=== PATIENT | female | born 1980 | race Two or more races ===

== ENCOUNTER 2023-09-14 22:07 | Emergency (ER) | payer BC, SELFPAY ==
[2023-09-14 22:11] VITALS: BP 134/94
[2023-09-14 22:39] LABS: % Basophils 0.5 % (0-2); % Eosinophils 0.8 % (0-6); % Immature Granulocytes 0.2 % (0-0.5); % Lymphocytes 22.7 % (20.5-51.1); % Monocytes 7.4 % (1.7-9.3); % Neutrophils 68.4 % (42.2-75.2); Absolute Eosinophils 0.1 10^3/uL (0-0.7); Absolute Monocytes 0.6 10^3/uL (0.1-0.6); Absolute Neutrophils 5.9 10^3/uL (1.4-6.5); Hematocrit 34.1 % (37.0-47.0); Hemoglobin 10.5 g/dL (12.0-16.0); Mean Corp Hgb Conc. 30.8 g/dL (33.0-37.0); Mean Corpuscular Hgb 20.1 pg (27.0-31.0); Mean Corpuscular Volume 65.2 fL (81.0-99.0); Nucleated Red Blood Cells % 0 %; Platelet Count 229 10^3/uL (130-400); Red Blood Cell Count 5.23 10^6/uL (4.20-5.40); Red Cell Dist. Width 19.4 % (11.5-14.5); White Blood Cell Count 8.6 10^3/uL (4.8-10.8)
[2023-09-14 22:50] LABS: HCG, Serum Qualitative Screen Negative
[2023-09-14 22:52] LABS: ALT (SGPT) 15 U/L (0-35); AST (SGOT) 28 U/L (14-36); Albumin 4.7 g/dl (3.5-5.0); Alkaline Phosphatase 75 U/L (38-126); Blood Urea Nitrogen 15 mg/dl (7-17); Calcium 9.5 mg/dl (8.4-10.2); Carbon Dioxide 23 mmol/L (22-30); Chloride 103 mmol/L (98-107); Glucose 81 mg/dl (70-99); Potassium 3.6 mmol/L (3.5-5.1); Sodium 137 mmol/L (135-145); Total Bilirubin 0.7 mg/dl (0.2-1.3); Total Protein 8.4 g/dl (6.3-8.2); eGFR > 60.00
[2023-09-14 23:01] LABS: Troponin I < 0.012 ng/ml
--- NOTE | 2023-09-15 00:55 | ED.GENMED ---
History of Present Illness
General
Chief Complaint: Chest Pain
Source: patient
Time Seen by Provider: 09/15/23 00:21
Travel History
Have you had any contact with someone who has COVID-19?: No
Do you have any symptoms of coronavirus? Fever > 100 degrees, chills, cough, shortness of breath, sore throat, loss of taste or smell, muscle aches, or headache?: No
History of Present Illness
History of Present Illness:
This patient is a 43-year-old female presents emergency department with complaints of 'not feeling well' for the last weeks. She describes a variety of complaints. She notes with minimal exertion she will sometimes feel dyspneic. This is
something that is on and off, without associated cough sore throat runny nose fever chills. She also notes episodes of chest tightness. This comes on unexpectedly, feels like a tightness in the center of her chest without exacerbating relieving
factors. It can last a few minutes and resolve spontaneously or last up to 30 minutes. She denies radiation, back pain, neck pain, headache. Patient also notes episodes of dizziness, described as lightheadedness, not a sense of spinning. She
also notes feeling generally tired. She denies urinary symptoms and her bowel movements are normal. Patient suffers from chronic anemia.
Past History
Past History
ED Past Medical History: Other (Anxiety/depression, polycystic ovaries)
ED Past Surgical History: Appendectomy, Bowel resection, Cholecystectomy and Other (Yousif-en-Y)
Social History
Tobacco: Non-smoker
Alcohol: None
Personal:
Living: with family
Phy Exam
Physical Exam
Physical Exam:
GENERAL: Alert , in no apparent distress
EYE: pupils equal and reactive
NECK: Supple, no significant adenopathy.
ENT: o/p clr, mmm.
CARDIAC: Regular rate and rhythm .
LUNGS: Clear breath sounds bilaterally, no acute respiratory distress, no wheezes/rales/rhonchi
ABDOMEN: Soft, without focal tenderness, no r/g, no cvat
NEUROLOGICAL: Alert and oriented, no focal neuro deficits
SKIN: Warm and dry, skin intact.
MUSCULOSKELETAL: No edema, well perfused.
PSYCH: Normal and appropriate interaction.
Scores
Heart Score for Chest Pain Patients
STEMI patient?: Not applicable
Course
Orders/Labs/Results
Orders:
Orders
09/14/23 22:11
Electrocardiogram (*1) Urgent
Reason for Study: Chest Pain
EKG- Treatment ONCE
Test Result ONCE
09/14/23 22:30
Comprehensive Metabolic Panel Urgent
HCG, Serum Qualitative Screen Urgent
TSH Urgent
Comment: ADDED
09/14/23 22:31
Complete Blood Count/With Diff Urgent
Troponin I Urgent
09/15/23 00:58
Add On- LAB Stat
Tests Added?: TSH
09/15/23 01:39
Troponin I Urgent
Abnormal Lab Results
09/14/23 09/14/23
22:30 22:31
Hgb 10.5 L g/dL
(12.0-16.0)
Hct 34.1 L %
(37.0-47.0)
MCV 65.2 L fL
(81.0-99.0)
MCH 20.1 L pg
(27.0-31.0)
MCHC 30.8 L g/dL
(33.0-37.0)
RDW 19.4 H %
(11.5-14.5)
Total Protein 8.4 H g/dl
(6.3-8.2)
09/14/23 22:31
09/14/23 22:30
Vital Signs
Initial and Last Documented VS:
Initial Vital Signs
Temp Pulse Resp BP Pulse Ox
97.8 F 94 16 134/94 100
09/14/23 22:11 09/14/23 22:11 09/14/23 22:11 09/14/23 22:11 09/14/23 22:11
Last Documented Vital Signs
Temp Pulse Resp BP Pulse Ox
97.8 F 77 13 117/90 99
09/14/23 22:11 09/15/23 03:15 09/15/23 03:15 09/15/23 03:00 09/15/23 03:15
*Critical Care Note
Total Time (30-74mins, 75-104mins- exclusive of procedures): Not Applicable
Update Note
Update Note:
Patient presents to the Emergency Department with
Number and Complexity of Problems Addressed at the Encounter
� Chronic conditions affecting care:
� Acute Exacerbation and/or Progression of Chronic Illness:
� Differential Diagnosis includes:
Amount and/or Complexity of Data to be Reviewed and Analyzed
� I performed an independent evaluation of and my interpretation is:
EKG: Read by me, normal sinus rhythm, normal rate, normal axis, no acute ischemia
CT:
Xrays:
Laboratory Studies: Read by me, anemia noted at 10.5 which is essentially baseline for patient and review of prior records
Other:
� Review of other/old records reveals:
� Clinical information was obtained by an independent historian:
� Prescriptions/Medications Considered but not given:
� Further testing considered but not performed:
Risk of Complications and/or Morbidity or Mortality of Patient Management
� Social determinants of health affecting care:
� Discussion with other providers (PCP, Hospitalists, Consultants, etc):
� Escalation of care including admission/observation vs risk of discharge considered:
ED Attending Note
-
Portions of this chart may have been created with voice recognition software.� Occasional wrong word or��sound alike� substitutions may have occurred due to the inherent limitations of voice recognition software.
Discharge Plan
Departure
Patient Disposition: Home (Routine Discharge)
Date of Disposition: 09/15/23
Time of Disposition: 03:27
Patient with high blood pressure during this ER visit?: Yes
Condition: Good
Discharge Problem:
Chest pain
Instructions: Chest Pain PCP Follow Up, BLOOD PRESSURE
Prescriptions:
No Action
doxycycline hyclate 100 MG capsule
100 mg PO Q12
metformin 1,000 MG tablet
1,000 mg PO DAILY
fluoxetine 20 MG capsule
20 mg PO DAILY
pregabalin [Lyrica] 25 MG capsule
25 mg PO HS
oxycodone 5 MG tablet
5 mg PO Q4HPRN PRN (Reason: pain) Qty: 14 0RF
oxycodone 5 mg capsule
5 mg PO Q8H PRN (Reason: pain) Qty: 10 0RF
Referrals:
[facility] [Outside] - Next open appointment
NONE,* [Family Provider] -
Activity Restrictions/Additional Instructions:
IF YOU DEVELOP INCREASING/NEW PAIN, FEVER, VOMITING, PERSISTENT TROUBLE BREATHING, SEVERE HEADACHE, WEAKNESS, OR OTHER WORRISOME SIGNS, GO TO THE ER IMMEDIATELY! YOU ARE ANEMIC (10.5 = YOUR HEMOGLOBIN),PLEASE HAVE THIS EVALUATED FURHTER WITH YOUR
DOCTOR.
Interventions
Interventions:
*Risk Screen - Suicide Last Done: 09/14/23 22:11
*General Assessment Last Done: 09/14/23 22:11
*Neglect/Abuse Screening Last Done: 09/14/23 22:11
ED- Fall Risk Assessment Last Done: 09/15/23 00:28
*ED COVID-19 Vaccine History Last Done: 09/15/23 00:28
ED- Cardiac Assessment Last Done: 09/15/23 00:28
Discharge Date and Time
Print Language: KAZAKH
[2023-09-15 01:37] VITALS: BP 127/98
[2023-09-15 01:40] VITALS: BMI 25.5
[2023-09-15 02:00] VITALS: BP 122/90
[2023-09-15 02:14] LABS: TSH 2.01 uIU/ml (0.47-4.68)
[2023-09-15 02:14] LABS: Troponin I < 0.012 ng/ml
[2023-09-15 02:30] VITALS: BP 114/83
[2023-09-15 03:00] VITALS: BP 117/90
[2023-09-15 03:30] VITALS: BP 111/91
== END 2023-09-15 04:00 | disposition home or self-care (01) ==
LOC: EMR 22:07
PROVIDERS: Emergency Medicine; EMERGENCY PHYSICIAN Emergency Medicine
DX: R07.89 Other chest pain (principal); R06.00 Dyspnea, unspecified; R42 Dizziness and giddiness; D64.9 Anemia, unspecified; F32.A Depression, unspecified; F41.9 Anxiety disorder, unspecified; E28.2 Polycystic ovarian syndrome; Z90.49 Acquired absence of other specified parts of digestive tract; Z98.0 Intestinal bypass and anastomosis status; R03.0 Elevated blood-pressure reading, without diagnosis of hypertension; Z88.7 Allergy status to serum and vaccine; Z91.040 Latex allergy status
CPT/HCPCS: 99284; 80053; 84443; 84484; 84703; 85025; 93005

== ENCOUNTER 2023-09-18 15:26 | Inpatient (IN) | payer BC, SELFPAY ==
[2023-09-18 11:30] VITALS: BP 121/88
--- NOTE | 2023-09-18 12:36 | ED.GENMED ---
History of Present Illness
General
Chief Complaint: Breathing Problem
Source: patient and previous hospital records
Exam Limitations: none
Time Seen by Provider: 09/18/23 12:03
Nursing documentation reviewed up to this point in time: agreed with
Travel History
Have you had any contact with someone who has COVID-19?: No
Do you have any symptoms of coronavirus? Fever > 100 degrees, chills, cough, shortness of breath, sore throat, loss of taste or smell, muscle aches, or headache?: No
History of Present Illness
History of Present Illness:
The patient is a pleasant 43-year-old female who comes in with complaints of worsening shortness of breath with any exertion over the last few weeks. Patient reports that when she feels very short of breath, she has a bandlike tightness across her
chest. Patient denies cough and fever. Patient was recently evaluated in the emergency department and had 2 normal troponins done. Patient denies a history of PE and DVT. She denies a history of long car or plane ride. She is not on
control. She denies smoking history.
Past History
Past History
ED Past Medical History: Other (Anxiety/depression, polycystic ovaries)
ED Past Surgical History: Appendectomy, Bowel resection, Cholecystectomy and Other (Yousif-en-Y)
Social History
Tobacco: Non-smoker
Alcohol: None
Personal:
Living: with family
Employment: Other
Family History
Family History: Other
Review of Systems
Review of Systems
Allergies reviewed?: Yes
All Other Systems: ROS reviewed and negative except as documented in HPI and ROS
Constitutional: Reports fatigue
EENT: Reports no symptoms
Respiratory: Reports trouble breathing
Cardiac: Reports chest pain and palpitations
ABD/GI: Reports no symptoms
: Reports no symptoms
Musculoskeletal: Reports no symptoms
Skin: Reports no symptoms
Neurological: Reports no symptoms
Endocrine: Reports no symptoms
Hematologic/Lymphatic: Reports no symptoms
Psychiatric: Reports no symptoms
Phy Exam
Physical Exam
Physical Exam:
Physical Exam
General: Mild tachypnea when conversational
Neck: supple. no meningeal signs. normal psoterior pharynx
Heart: Tachycardic. No murmur
Lungs: Mildly tachypneic with walking and talking. Clear breath sounds
Abdomen: normal bowel sounds. not tender. no CVAT
Neuro: alert and oriented. no focal neurological deficits
Skin: no rash
Psychiatric: well kept. interactive and cooperative
Extremities: no edema. no calf tenderness. negative homans. good distal pulses
Course
Orders/Labs/Results
Orders:
Orders
09/18/23 11:34
Electrocardiogram (*1) Urgent
Reason for Study: Chest Pain
09/18/23 11:36
EKG- Treatment ONCE
09/18/23 11:38
Test Result ONCE
09/18/23 12:24
Add On- LAB Urgent
Tests Added?: Pro-BNP
CT Chest Pe Study Urgent
Comment:
Reason For Exam: SOB, CP
09/18/23 12:50
Comprehensive Metabolic Panel Urgent
HCG, Serum Qualitative Screen Urgent
NT-proBNP Urgent
Comment: ADD ON
TSH Reflex To Free T4 Urgent
Troponin I Urgent
09/18/23 13:47
0.9% Sodium Chloride 1000 ml [Nss] 1,000 ml IV BOLUS
09/18/23 14:26
Complete Blood Count/With Diff Urgent
Venous Blood Gas Urgent
%Oxygen/Room Air: room air
09/18/23 14:38
Add On- LAB Urgent
Tests Added?: Lactic acid
09/18/23 14:52
Admit/Transfer Patient As Directed
Co-Sign Provider:
Level of Care: Inpatient admission
Assign to:: Telemetry
Physician / Group: newton wang
Diagnosis: metabolic acidosis, dyspnea
Reason for Telemetry: Arrhythmia
Date to Stop Telemetry: 09/21/23
Time to Stop Telemetry: 11:00
Reason for Hospitalization: metabolic acidosis, dyspnea
Expected length of stay greater than two midnights?: Yes
ELOS- Estimated Length of Stay in days: 3
I certify the patient meets the requirements for IP care: Yes
09/18/23 14:53
Code Status As Directed
Resuscitation Status: Full Code
09/18/23 16:09
Acetaminophen [Tylenol] 650 mg PO Q4HPRN PRN
Bisacodyl [Dulcolax] 10 mg RECTAL [id number] PRN
Docusate W/Senna [Senokot-S] 1 tablet PO BIDPRN PRN
Polyethylene Glycol Powder [Miralax] 17 grams PO DAILYPRN PRN
09/18/23 16:09
Activity As Directed
Activity Level: As Tolerated
Compression Sleeves [Pneumatic Compression Sleeves] As Directed
Type: Thigh high
Vital Signs As Directed
Frequency: Per unit guidelines
O2 Therapy [RESP] Routine
Nasal Cannula Liter Flow: 2 LPM
Titrate/Wean O2 to maintain O2 sat greater than (%): 92
DX Deep Vein Thrombosis Video Routine
09/18/23 16:57
Lactic Acid Urgent
Comment: CANNOT ADD, PLEASE DRAW
09/18/23 21:39
Drug Screen, Urine [Urine Drug Abuse Screen] Routine
Date Specimen was Collected: 09/18/23
Time Specimen was Collected: 21:26
09/19/23 04:59
Basic Metabolic Panel IN AM
Complete Blood Count/No Diff IN AM
09/20/23 05:04
Complete Blood Count/No Diff IN AM
09/21/23 04:41
Basic Metabolic Panel IN AM
Complete Blood Count/No Diff IN AM
09/22/23 10:23
Basic Metabolic Panel IN AM
Complete Blood Count/No Diff IN AM
09/23/23 06:12
Basic Metabolic Panel IN AM
Complete Blood Count/No Diff IN AM
Abnormal Lab Results
09/18/23 09/18/23
12:50 14:26
RBC 5.52 H 10^6/uL
(4.20-5.40)
Hgb 11.2 L g/dL
(12.0-16.0)
MCV 68.3 L fL
(81.0-99.0)
MCH 20.3 L pg
(27.0-31.0)
MCHC 29.7 L g/dL
(33.0-37.0)
RDW 20.2 H %
(11.5-14.5)
Absolute Neuts (auto) 9.2 H 10^3/uL
(1.4-6.5)
Absolute Lymphs (auto) 0.8 L 10^3/uL
(1.2-3.4)
Neutrophils % 87.2 H %
(42.2-75.2)
Lymphocytes % 7.8 L %
(20.5-51.1)
VBG pH 7.17 L*
(7.32-7.43)
VBG pCO2 28 L mmHg
(35-48)
VBG pO2 74 H mmHg
(30-50)
VBG HCO3 10.2 L mmol/L
(22-27)
Carbon Dioxide 6 L* mmol/L
(22-30)
Calcium 11.0 H mg/dl
(8.4-10.2)
Total Protein 10.3 H g/dl
(6.3-8.2)
Albumin 5.7 H g/dl
(3.5-5.0)
09/18/23 14:26
09/18/23 12:50
Vital Signs
Initial and Last Documented VS:
Initial Vital Signs
Temp Pulse Resp BP Pulse Ox
98.1 F 97 18 121/88 100
09/18/23 11:30 09/18/23 11:30 09/18/23 11:30 09/18/23 11:30 09/18/23 11:30
Last Documented Vital Signs
Temp Pulse Resp BP Pulse Ox
97.6 F 76 16 108/70 100
09/23/23 11:39 09/23/23 11:39 09/23/23 11:39 09/23/23 11:39 09/23/23 11:39
MDM/Problems Addressed
Differential Diagnosis Includes:
Pulmonary embolism, CHF, symptomatic anemia
MDM/Problems Addressed:
Patient presents with subacute shortness of breath
Chronic conditions affecting care:
Anemia
Acute Exacerbation and/or Progression of Chronic Illness:
Patient may have acute exacerbation of chronic anemia
*Pulse Oximetry
Patient hypoxic: yes
Comment: When I did a walking pulse ox, patient's pulse ox was 82% on room air
*EKG
Interpreted by ED Provider?: Yes
Interpretation: normal
Comparison EKG: no changes
Rate: normal
Rhythm: sinus arrhythmia
[place]: normal axis
Interval: normal interval
QRS Pattern: normal QRS
Ischemia: no ischemia
*Career Discovery Teacher Interpretation
Rate: bradycardiac
Interpretation: abnormal
Rhythm: sinus
*Critical Care Note
Total Time (30-74mins, 75-104mins- exclusive of procedures): Not Applicable
Data Reviewed
Review of Other/Old Records Reveals: Labs (Labs reviewed from 09/14/2023 and 09/15/2023 which shows 2 normal troponins)
Source: patient
Patient Management
Discussion with other providers: Hospitalist
Escalation/DeEscalation of care consider admission/obs:
When I walk the patient, her pulse ox drops to low 80s and she becomes increasingly tachycardic and tachypneic.
Additionally, patient appears very dehydrated, pale and has a bicarb of 6.
I will give the patient IV fluids. We are waiting CAT scan for PE study.
ED Attending Note
-
Portions of this chart may have been created with voice recognition software.� Occasional wrong word or��sound alike� substitutions may have occurred due to the inherent limitations of voice recognition software.
Discharge Plan
Departure
Patient Disposition: Admit
Date of Disposition: 09/18/23
Time of Disposition: 14:05
Presentation/result/management discussed w/ accepting MD/DO: Hospitalist
Condition: Fair
Discharge Problem:
Metabolic acidosis, Exertional dyspnea
Interventions
Interventions:
*Risk Screen - Suicide Last Done: 09/18/23 14:41
*General Assessment Last Done: 09/18/23 12:32
*Neglect/Abuse Screening Last Done: 09/18/23 14:41
*ED COVID-19 Vaccine History Last Done: 09/18/23 14:41
*Nursing Disposition Last Done: 09/18/23 16:10
ED- Cardiac Assessment Last Done: 09/18/23 12:32
ED- Pulmonary Assessment Last Done: 09/18/23 12:32
Discharge Date and Time
Discharge Date/Time: 09/18/23 16:10
[2023-09-18 13:29] LABS: Troponin I < 0.012 ng/ml
[2023-09-18 13:45] LABS: ALT (SGPT) 17 U/L (0-35); AST (SGOT) 36 U/L (14-36); Albumin 5.7 g/dl (3.5-5.0); Alkaline Phosphatase 91 U/L (38-126); Blood Urea Nitrogen 11 mg/dl (7-17); Carbon Dioxide 6 mmol/L (22-30); Chloride 106 mmol/L (98-107); Glucose 72 mg/dl (70-99); Potassium 4.8 mmol/L (3.5-5.1); Sodium 138 mmol/L (135-145); Total Bilirubin 1.1 mg/dl (0.2-1.3); Total Protein 10.3 g/dl (6.3-8.2); eGFR > 60.00
[2023-09-18 13:47] LABS: HCG, Serum Qualitative Screen Negative
[2023-09-18] MEDS: NSS 1000 IV (14:00)
[2023-09-18 14:03] LABS: TSH Reflex To Free T4 1.64 uIU/ml (0.47-4.68)
--- NOTE | 2023-09-18 14:29 | HPS.HSE ---
Family Physician
-
Family Physician: * NONE
Chief Complaint
-
sob
History of Present Illness
43-year-old female with PMH for anxiety, depression presented to us with sob worse with activity. Patient reports that when she feels very short of breath, she has a bandlike tightness across her chest. patient has pain with deep breath. denied
cough, fever, chill. stated PEREZ. denied abdominal pain, diarrhea. stated nausea and vomiting this morning. denied dysuria or hematuria.
noted metabolic acidosis in ER. admitting for further managment.
Medical History
Past Medical History
Past Medical History: Reports Other
Additional Past Medical History:
anxiety
depression
PCOS
Past Surgical History: Reports Other
Additional Past Surgical History:
gastric bypass
appendectomy
left ankle
D&C
Social History
Tobacco: Non-smoker
Alcohol: None
Drug: None
Family History
Family History: Not pertinent
Allergies / Home Medications
Allergies reflects when Allergies were last updated in [facility].
Home Medications with original date entered in [facility]
Allergy/Medication List:
Allergies
Allergy/AdvReac Type Severity Reaction Status Date / Time
latex Allergy Rash Verified 09/18/23 11:30
Pertussis Vaccines Allergy seizure Verified 09/18/23 11:30
Home Medications
acetaminophen 325 mg tablet (Tylenol) 650 mg PO Q4HPRN PRN mild pain 09/18/23
Review of Systems
-
Constitutional: Reports No Symptoms
EENT: Reports No Symptoms
Respiratory: Reports Trouble Breathing
Cardiac: Reports Chest Pain
Abdomen/GI: Reports No Symptoms
: Reports No Symptoms
Musculoskeletal: Reports No Symptoms
Skin: Reports No Symptoms
Neurological: Reports No Symptoms
Endocrine: Reports No Symptoms
Hematologic/Lymphatic: Reports No Symptoms
Psych: Reports No Symptoms
Physical Exam
Vital Signs
Vital Signs
Temp Pulse Resp BP Pulse Ox
98.1 F 110 20 121/88 100
09/18/23 11:30 09/18/23 13:30 09/18/23 14:03 09/18/23 11:30 09/18/23 14:03
Physical Exam
General: Well Developed, Well Nourished and No Apparent Distress
HEENT: NormoCephalic, Moist mucous membranes and Atraumatic
Respiratory: Clear
Cardiac: S1/S2 and Regular Rhythm; No Murmur or Rub
GI: Soft, Non Tender, Non Distended and Normal Bowel Sounds; No Organomegaly
Rectal: Deferred by Provider
Musculoskeletal: No Clubbing, No Cyanosis and No Edema
Skin: No Rash
Neuro: AO x 3 and Nonfocal/grossly intact
Psych: Calm
Laboratory Results
-
09/18/23 12:50
Laboratory Results
Total Bilirubin 1.1 mg/dl (0.2-1.3) 09/18/23 12:50
AST 36 U/L (14-36) 09/18/23 12:50
ALT 17 U/L (0-35) 09/18/23 12:50
Alkaline Phosphatase 91 U/L (38-126) 09/18/23 12:50
Troponin I < 0.012 ng/ml 09/18/23 12:50
Data Reviewed
-
Lab Data: Labs Reviewed by me
Impression/Plan
-
#worsening sob/chest tightness/acute hypoxic respiratory failure unclear cause r/o acute PE
-BNP 21.0.trop 0.012
-CT Chest ordered
-continue supplemental oxygen to keep sat >92
-wean as tolerated
#metabolic acidosis unclear cause
-ctm
#hxt of depression/anxiety
#DVT prophylaxis
-scd
#CODE status
-full code
[2023-09-18 14:34] LABS: Venous Blood Gas B.E. -16.9 mmol/L (-4 to +4); Venous Blood Gas HCO3 10.2 mmol/L (22-27); Venous Blood Gas O2 Sat % 93.4 %; Venous Blood Gas pCO2 28 mmHg (35-48); Venous Blood Gas pO2 74 mmHg (30-50)
[2023-09-18 14:36] LABS: % Basophils 0.3 % (0-2); % Immature Granulocytes 0.4 % (0-0.5); % Lymphocytes 7.8 % (20.5-51.1); % Monocytes 4.3 % (1.7-9.3); % Neutrophils 87.2 % (42.2-75.2); Absolute Lymphocytes 0.8 10^3/uL (1.2-3.4); Absolute Monocytes 0.5 10^3/uL (0.1-0.6); Absolute Neutrophils 9.2 10^3/uL (1.4-6.5); Hematocrit 37.7 % (37.0-47.0); Hemoglobin 11.2 g/dL (12.0-16.0); Mean Corp Hgb Conc. 29.7 g/dL (33.0-37.0); Mean Corpuscular Hgb 20.3 pg (27.0-31.0); Mean Corpuscular Volume 68.3 fL (81.0-99.0); Mean Platelet Volume 10.3 fL (7.4-10.4); Nucleated Red Blood Cells % 0 %; Platelet Count 235 10^3/uL (130-400); Red Blood Cell Count 5.52 10^6/uL (4.20-5.40); Red Cell Dist. Width 20.2 % (11.5-14.5); Venous Blood Gas pH 7.17 (7.32-7.43); White Blood Cell Count 10.5 10^3/uL (4.8-10.8)
--- NOTE | 2023-09-18 15:37 | W.PN.UPDATE ---
Update Note
Progress Note Update
I saw and examined the patient.
The TUFTING MACHINE FIXER's note was reviewed and I agree with the note.
Patient is a 43-year-old female with past medical history of gastric bypass, history of intestinal repair, who came to ER with ongoing exertional dyspnea for last 2 weeks. Patient having difficult time getting around with significant dyspnea, ER
noted patient to be borderline hypoxic at times as well. Patient complain of having associated chest tightness. Patient also had few episodes of diarrhea last week, some nausea and 1 episode of vomiting in the ER today. Patient was in ER on 09/13
for similar symptoms of chest tightness/dyspnea and was sent home after evaluation.
Of note patient had severe metabolic acidosis with bicarb 6, this was not present on liver evaluation on 09/13 -bicarb was 23 at the day.
HEENT: No pallor, cyanosis, or jaundice. Throat clear.
NECK: Supple. No JVD.
RESPIRATORY: Lungs clear to auscultation.
CVS: S1, S2 normal. tachycardic . No murmur, rub or gallop.
ABDOMEN: Soft, non-tender. No distension. BS+/normal.
EXTREMITIES: No peripheral cyanosis or edema.
BRANCH SERVICE SPECIALIST: AOx3. No focal deficits.
Pneumomediastinum
Exertional dyspnea
-CT chest PE incidentally showing small lucency with pneumomediastinum. no PE
-Patient did have episode of vomiting today although dyspnea/chest tightness ongoing for 2 weeks less likely Beatriz-Farmer tear related pneumomediastinum
-No other sign of suggestive of ongoing infection. No fever episode in last 2 weeks.
-As needed oxygen to nasal cannula
Anion gap metabolic acidosis
-VBG showing pH of 7.1, pCO2 28 pCO2 of 74
-No renal dysfunction. Not diabetic. Check urine drug screen/alcohol level -patient denies use
-Started on bicarb drip and follow level
h/o gastric bypass
h/o intestinal repair
-done in , no complicating factors
Microcytic anemia
-suspected of iron deficiency
[id number]-scd
Full code
[2023-09-18 15:46] VITALS: BP 108/84
[2023-09-18 16:46] VITALS: BP 123/85; BMI 23.3
--- NOTE | 2023-09-18 17:00 | PTCARENOTE ---
Pt admitted into room 406-2. AAOx3, ambulated with standby assistance from stretcher to bed. VSS. Tele showing NSR - ST 100's. RA O2 sat 100%. Pt oriented to room and has call trevino within reach.
[2023-09-18] MEDS: SODIUM BICARBONATE 1150 MEQ IV (17:03)
[2023-09-18] MEDS: TYLENOL 650 MG PO (17:03)
[2023-09-18 17:26] LABS: Alcohol None Detected
[2023-09-18 17:59] LABS: Osmolality Serum 287 mOsm/kg (275-300)
[2023-09-18 19:49] VITALS: BP 127/90
[2023-09-18 21:15] VITALS: BP 145/96
[2023-09-18 21:19] LABS: Glucose - Point of Care 106 mg/dl (70-99)
--- NOTE | 2023-09-18 21:20 | PTCARENOTE ---
Patient complained of chest pain/tightness. AAOx3. EKG done revealing Normal Sinus Rhythm. VSS, O2 at 100% on RA, HR 91, RR 20, BP 145/96. Blood sugar 106. Patient says she has been having this chest tightness for 2 weeks now. Says she notices the
pain when she starts to have a migraine. CASING MACHINE OPERATOR Candida Corea aware. CASING MACHINE OPERATOR ordered Morphine 1mg Q4H PRN for chest pain. Medication administered, see MAR. Patient made comfortable in bed, call trevino is within reach.
[2023-09-18] MEDS: MORPHINE SULFATE 1 MG IV (21:35)
[2023-09-18 21:58] LABS: Urine Albumin Trace (Neg - Trace); Urine Bilirubin Negative (Negative); Urine Character Clear (Clear); Urine Color Yellow; Urine Glucose Negative (Negative); Urine Ketone 3+ (Negative); Urine Leukocyte Negative (Negative); Urine Nitrite Negative (Negative); Urine Occult Blood Negative (Negative); Urine Urobilinogen Negative (Neg - 1+)
[2023-09-18 22:11] LABS: Urine Potassium 36.1 mmol/L (30-90); Urine Sodium 141 mmol/L (30-90)
[2023-09-18 22:15] LABS: Amphetamines Negative (Negative); Barbiturates Negative (Negative); Benzodiazepines Negative (Negative); Buprenorphine Negative (Negative); Cocaine Negative (Negative); Marijuana Positive (Negative); Methadone Negative (Negative); Methamphetamines Negative (Negative); Opiates Negative (Negative); Phencyclidine Negative (Negative); Tricyclic Antidepressants Negative (Negative)
[2023-09-18 23:25] VITALS: BP 134/93
[2023-09-19] MEDS: SODIUM BICARBONATE 1150 MEQ IV (02:43)
[2023-09-19 03:27] VITALS: BP 123/87
--- NOTE | 2023-09-19 03:40 | PTCARENOTE ---
Pt called reporting she felt like her throat was being 'strangled'. Patient able to communicate without any issues. Still has the chest tightness which she states she has had for about 2 weeks now. GRAIN RECEIVER notified and aware. Patient did not want any PRN
morphine or PRN Tylenol. A dose of PO Ativan was prescribed by GRAIN RECEIVER, see MAR. Pt declined saying she did not want to take any medications. Stated she just wanted to have 'this feeling' on record. AAOx3, VSS temp at 98.1, HR 85, RR 17, BP 123/87, 100%
RA. Call trevino is within reach.
[2023-09-19 05:36] LABS: Hematocrit 31.2 % (37.0-47.0); Mean Corp Hgb Conc. 32.1 g/dL (33.0-37.0); Mean Corpuscular Hgb 20.7 pg (27.0-31.0); Mean Corpuscular Volume 64.6 fL (81.0-99.0); Mean Platelet Volume 10.3 fL (7.4-10.4); Platelet Count 194 10^3/uL (130-400); Red Blood Cell Count 4.83 10^6/uL (4.20-5.40); Red Cell Dist. Width 19.3 % (11.5-14.5); White Blood Cell Count 5.9 10^3/uL (4.8-10.8)
[2023-09-19 06:06] LABS: Blood Urea Nitrogen 7 mg/dl (7-17); Calcium 9.5 mg/dl (8.4-10.2); Carbon Dioxide 21 mmol/L (22-30); Chloride 100 mmol/L (98-107); Estimated Creatinine Clearance 104 ml/min; Glucose 88 mg/dl (70-99); Potassium 3.6 mmol/L (3.5-5.1); Sodium 134 mmol/L (135-145); eGFR > 60.00
[2023-09-19 06:35] LABS: Ferritin 7.3 ng/ml (6.24-137)
[2023-09-19 07:55] VITALS: BP 114/87
--- NOTE | 2023-09-19 08:00 | CON.PUL ---
Consultation
Consultation Request
Date/Time Consultation Requested: 09/19/2023-8 AM
Date/Time Consultation Performed: 09/19/2023-8:15 AM
Requesting Provider: hospitalist
Performing Provider: Dr. Chau
Reason for Consultation: shortness of breath
Medical History
-
Chief Complaint: Shortness of breath
History of Present Illness:
43-year-old female without significant past pulmonary history who is a non-smoker, not on vapor and usually quite active including working out and presents with 2 weeks of shortness of breath and subsequent negative CT chest with pulm embolism
protocol, however, pneumomediastinum was noted as well as significant anion gap metabolic acidosis-pulmonary was consulted for shortness of breath/acidosis 09/19/2023. She states that normally she works out and does not have shortness of breath.
Fairly suddenly 2 weeks ago she had increasing shortness of breath. This has been somewhat progressive. She denies any chest pain, chest tightness but does have some throat tightness that developed over the last 24 hours. She does not have any
dysphagia. She had an episode of nausea and emesis yesterday but that is resolved. Prior to this event she did not have significant nausea or gastrointestinal complaints. She does not complain of any abdominal pain reflux leg swelling or focal
weakness.
Past Medical History
Past Medical History: None (Anxiety. Depression. Polycystic ovarian syndrome. Gastric bypass. Appendectomy. Left ankle surgery. D&C.)
Social History
Tobacco: Non-smoker
Alcohol: None
Drug: None
Occupational Exposures: No known asbestos exposure
Environmental Exposures: no known tuberculosis exposure
Family History
Family History: Reviewed & Not Pertinent
Allergies / Home Medications
Allergies
Allergy/AdvReac Type Severity Reaction Status Date / Time
latex Allergy Rash Verified 09/18/23 11:30
Pertussis Vaccines Allergy seizure Verified 09/18/23 11:30
Home Medications
�Medication �Instructions �Recorded �Confirmed �Last Taken �Type
acetaminophen 325 mg tablet 650 mg PO Q4HPRN PRN mild pain 09/18/23 09/18/23 09/17/23 History
(Tylenol)
Review of Systems
-
Unable to Obtain full review of systems at this time due to: Other (Per HPI)
Vitals / Labs / Diagnostic Testing
Vital Signs
Temp Pulse Resp BP Pulse Ox
98.1 F 85 16 123/87 100
09/19/23 03:27 09/19/23 03:27 09/19/23 03:27 09/19/23 03:27 09/19/23 03:27
Lab Data
09/19/23 04:59
09/19/23 04:59
Diagnostic Testing:
Physical Exam
-
Exam:
well-nourished and well-developed in no apparent distress
HEENT-atraumatic, normocephalic
Neck-supple, no JVD, no bruit
Heart-regular rate and rhythm-no murmurs, rubs or gallops
Chest-clear to auscultation, no wheezes, crackles
Back-no tenderness
Abdomen-soft, nontender, nondistended, no hepatosplenomegaly
Extremities-no cyanosis, clubbing, edema and good peripheral pulses
Integument-intact, no rashes, lesions or ecchymosis
Neurology-alert and oriented, nonfocal motor and sensory exam
Assessment
-
43-year-old female without significant past pulmonary history who is a non-smoker, not on vapor and usually quite active including working out and presents with 2 weeks of shortness of breath and subsequent negative CT chest with pulm embolism
protocol, however, pneumomediastinum was noted as well as significant anion gap metabolic acidosis-pulmonary was consulted for shortness of breath/acidosis 09/19/2023.
Assessment
Shortness of breath and chest tightness-in part due to compensation for underlying metabolic acidosis
Metabolic acidosis-anion gap
VBG 09/18/2023--7.17
Pneumomediastinum
Zeypbo-hdkujtwjhs-vtmkdugniq 10.0-MCV 64.6
Mild hyponatremia
Urine drug screen-positive marijuana
Conditions present prior to admission:
Anxiety.
Depression.
Polycystic ovarian syndrome.
Gastric bypass. Appendectomy. Left ankle surgery. D&C.
Plan
Etiology of respiratory decompensation not entirely clear-fairly sudden onset 2 weeks ago with increased shortness of breath and chest tightness and found to have pneumomediastinum
Pneumomediastinum-no history of trauma, did complain of some emesis but chronologically unlikely related, marijuana inhalation with breath-holding has been reported to cause occasional pneumothorax/pneumomediastinum
Supplemental oxygen as needed
Incentive spirometry
Nebulizers if needed-currently not bronchospastic
Eventual PFTs
CT chest reviewed
Monitor for pneumomediastinum progression
No clinical evidence for mediastinitis-afebrile, no leukocytosis
Complaining of some throat tightness-esophageal swallow study pending
Consider GI evaluation
Monitor hemoglobin
Transfuse as needed
Check iron studies
Replace electrolytes
DVT prophylaxis-recommended
Nutrition per primary service
Reviewed with Dr. Jorge and nursing
Consider outpatient pulm evaluation-repeat imaging, PFTs, etc.
Diagnostic data:
Chest x-ray 03/09/2022-NAD
CT abdomen and pelvis 03/10/22-3.5 cm left ovarian hemorrhagic cyst no acute inflammatory process in the abdomen or pelvis
CT chest 09/18/2023-scattered lucencies within the mediastinum and lower neck compatible with pneumomediastinum, no pulm embolism, no nodules or focal airspace disease or pleural effusions
Data Reviewed
-
EKG: Report reviewed by me
Radiology: Image personally visualized and interpreted and Report reviewed by me
CT Scan: Image personally visualized and interpreted and Report reviewed by me
Medical Tests (Nuc Med, Echo etc): Report reviewed by me
Labs: Labs reviewed by me and Discussed with Physician
Total Time Spent with Patient (in minutes): 65
[2023-09-19] MEDS: LOPRESSOR 12.5 MG PO ×2 (10:06→19:32)
--- NOTE | 2023-09-19 10:12 | PTCARENOTE ---
Elevated HR to 140 while ambulating to bathroom. C/O chest tightness. HR quickly recovered and pain resolved once back in bed. o2 sat 100% on RA. Dr. Jorge at bedside. Lopressor 12.5mg ordered for HR, Toradol PRN ordered for pain.
[2023-09-19 11:09] VITALS: BP 112/79
--- NOTE | 2023-09-19 11:22 | CM ---
Kayla is a 43yo female with one child (son) at home. She lives with and son in a ranch style home. No established PCP; Kayla made an appointment with a practice for next week, but cannot recall the name of the physician or
practice.
Anticipate discharge to home with family at discharge with no needs.
CM will continue to follow during hospitalization to assist with any needs that arise.
PCP: Attempting to establish PCP
Ph[facility]acy: [facility]
[2023-09-19] MEDS: FERRLECIT 110 MG IV (11:39)
--- NOTE | 2023-09-19 13:18 | W.PN.HOSP.TC ---
Today's Communication/Plan
-
start reg diet
start lopressor/xanax
monitor overnight
Assessment / Plan
Assessment / Plan
Pneumomediastinum
Exertional dyspnea
-CT chest PE incidentally showing small lucency with pneumomediastinum. no PE
-Patient did have episode of vomiting today although dyspnea/chest tightness ongoing for 2 weeks less likely Beatriz-Farmer tear related pneumomediastinum
-No other sign of suggestive of ongoing infection. No fever episode in last 2 weeks.
-Esophagogram ruled out any esophageal perforation - starting regular diet from evening.
-Pulmonology evaluated and help appreciated.
-Patient still getting dyspnic with minimal acitivty, not hypoxic.
Anion gap metabolic acidosis
-ketoacidosis with low oral intake vs colonic loss (had few episodes of diarrhea)
-VBG showing pH of 7.1, pCO2 28 pCO2 of 74
-No renal dysfunction. Not diabetic. Neg alc level. Neg LA level. Not on any meds/supplement.
-corrected with bicarb drip. stop furthe bicarb
Marijuana positive
-UDS positive for marijuana, patient emphatically denies using it
h/o gastric bypass
h/o intestinal repair
-done in , no complicating factors
Iron def anemia
-Ferritin ~ 7 only
-start ferlicit and will provide oral iron at discharge.
Sinus tachycardia
-with pneumomediastinum likely
-Lopressor with holding parameter started
Anxiety
-possibly induced by chest tightness/dyspnea
-prn xanax ordered.
DVTPPX-scd
Full code
Case discussed with Pulmonology
Patient at high risk of complication if pneumo-mediastinum progresses further.
Anticipated Discharge: Within 24 hours
Subjective/Interval History
-
Date of Service: September 19, 2023
Had episode of chest pain overnight, having some dyspnea.
Patient was given Ativan, feeling better
Objective Data
-
Labs:
Laboratory Results
09/19/23
04:59
WBC 5.9
Hgb 10.0 L
Hct 31.2 L
Plt Count 194
Sodium 134 L
Potassium 3.6
Chloride 100
Carbon Dioxide 21 L
BUN 7
Creatinine 0.5 L
Glucose 88
Calcium 9.5 D
Vital Signs:
Vital Signs
Temp Pulse Resp BP Pulse Ox
97.9 F 97 16 112/79 100
09/19/23 11:09 09/19/23 11:09 09/19/23 11:09 09/19/23 11:09 09/19/23 11:09
I&O
09/18/23 09/19/23 09/20/23
06:59 06:59 06:59
Intake Total 1800 / 1800
Balance 1800 / 1800
Review of Systems
-
Respiratory: Reports No Symptoms
Cardiac: Reports No Symptoms
Abdomen/GI: Reports No Symptoms
Physical Exam
-
General: No Apparent Distress and Comfortable
HEENT: Negative Oxygen
Respiratory: Clear to Auscultation
Cardiac: Regular Rhythm and S1/S2; Negative Murmur or Rub
GI: Soft, Nontender, Nondistended and Normal Bowel Sounds
Musculoskeletal: No Edema
Neuro: Awake, Alert, Oriented, No Motor Deficits and Nonfocal/Grossly Intact
Psych: Calm
[2023-09-19 15:03] VITALS: BP 100/72
[2023-09-19 19:21] VITALS: BP 101/77
[2023-09-19 23:41] VITALS: BP 146/79
[2023-09-20] VITALS (7 sets, daily range): BP systolic 98–119; BP diastolic 62–79
[2023-09-20 05:36] LABS: Hematocrit 31.7 % (37.0-47.0); Mean Corp Hgb Conc. 31.5 g/dL (33.0-37.0); Mean Corpuscular Hgb 20.4 pg (27.0-31.0); Mean Corpuscular Volume 64.7 fL (81.0-99.0); Mean Platelet Volume 10.5 fL (7.4-10.4); Platelet Count 193 10^3/uL (130-400); White Blood Cell Count 5.3 10^3/uL (4.8-10.8)
[2023-09-20 06:10] LABS: ALT (SGPT) 14 U/L (0-35); AST (SGOT) 27 U/L (14-36); Albumin 3.9 g/dl (3.5-5.0); Alkaline Phosphatase 67 U/L (38-126); Blood Urea Nitrogen 11 mg/dl (7-17); Calcium 9.4 mg/dl (8.4-10.2); Carbon Dioxide 26 mmol/L (22-30); Chloride 100 mmol/L (98-107); Direct Bilirubin 0.3 mg/dl (0.0-0.4); Estimated Creatinine Clearance 104 ml/min; Glucose 76 mg/dl (70-99); Potassium 3.5 mmol/L (3.5-5.1); Sodium 137 mmol/L (135-145); Total Bilirubin 0.6 mg/dl (0.2-1.3); Total Protein 7.1 g/dl (6.3-8.2); eGFR > 60.00
[2023-09-20] MEDS: LOPRESSOR 12.5 MG PO ×2 (07:52→19:50)
--- NOTE | 2023-09-20 09:24 | W.PN.PUL.V3 ---
Today's Communication / Plan
-
Repeat CT chest
Check rest and exercise oximetry
Assessment
-
43-year-old female without significant past pulmonary history who is a non-smoker, not on vapor and usually quite active including working out and presents with 2 weeks of shortness of breath and subsequent negative CT chest with pulm embolism
protocol, however, pneumomediastinum was noted as well as significant anion gap metabolic acidosis-pulmonary was consulted for shortness of breath/acidosis 09/19/2023.
Assessment
Shortness of breath and chest tightness-in part due to compensation for underlying metabolic acidosis
Metabolic acidosis-anion gap
VBG 09/18/2023--7.17
Pneumomediastinum
Ddvkyo-zszlnzysez-nhsmrmzypk 10.0-MCV 64.6
Mild hyponatremia
Urine drug screen-positive marijuana-emphatically denies use-false positives can be seen with PPI ingestion, etc.
Conditions present prior to admission:
Anxiety.
Depression.
Polycystic ovarian syndrome.
Gastric bypass. Appendectomy. Left ankle surgery. D&C.
Plan
Etiology of respiratory decompensation not entirely clear-fairly sudden onset 2 weeks ago with increased shortness of breath and chest tightness and found to have pneumomediastinum
Pneumomediastinum-no history of trauma, did complain of some emesis but chronologically unlikely related, marijuana inhalation with breath-holding has been reported to cause occasional pneumothorax/pneumomediastinum
Supplemental oxygen as needed-check rest and exercise oximetry
Incentive spirometry
Nebulizers if needed-currently not bronchospastic
Eventual PFTs
CT chest 09/18/[address] chest 09/20/2023-improved pneumomediastinum, otherwise normal no contrast extravasation into the mediastinum to suggest esophageal tear
Monitor for pneumomediastinum progression
No clinical evidence for mediastinitis-afebrile, no leukocytosis
Complaining of some throat tightness-esophageal swallow study 09/19/2023-normal
Consider GI evaluation if symptoms persist
Monitor hemoglobin
Transfuse as needed
Check iron studies
Replace electrolytes
DVT prophylaxis-recommended
Nutrition per primary service
Reviewed with Dr. Jorge and nursing
Consider outpatient pulm evaluation-repeat imaging, PFTs, etc.
Diagnostic data:
Chest x-ray 03/09/2022-NAD
CT abdomen and pelvis 03/10/22-3.5 cm left ovarian hemorrhagic cyst no acute inflammatory process in the abdomen or pelvis
CT chest 09/18/2023-scattered lucencies within the mediastinum and lower neck compatible with pneumomediastinum, no pulm embolism, no nodules or focal airspace disease or pleural effusions
.
Subjective Data
-
Date of Service:
Date of Service: September 20, 2023
Chief Complaint: Pulmonary Follow Up and Dyspnea Follow Up
Subjective:
Overall feels better, however, still short of breath with minimal exertion, no complaints of throat pain, eating, no chest pain, pleurisy, or abdominal pain
Review of Systems
General: Other (Per HPI)
Objective Data
Data Reviewed
Vital Signs / I&O:
Vital Signs
Temp Pulse Resp BP Pulse Ox
99 F 90 14 101/69 100
09/20/23 07:45 09/20/23 07:52 09/20/23 07:45 09/20/23 07:52 09/20/23 07:45
Intake and Output
09/19/23 09/20/23 09/21/23
06:59 06:59 06:59
Intake Total 1800 / 1800 1080 / 1080
Balance 1800 / 1800 1080 / 1080
SaO2: 100
Physical Exam
General: Respiratory Distress (n) and Comfortable
HEENT: Normocephalic, Anicteric and Moist Mucous Membranes
Cardiovascular: Regular Rhythm
Respiratory: Wheeze (n), Crackles (n), Rhonchi (n), Non-Labored Respirations, Accessory Resp Muscle Use and Stridor (n)
GI: Soft, Non Distended and Non Tender
Neurology: Awake, Alert and No Motor Deficits
Skin: Warm, Good Color, Cyanosis (n), Jaundice (n) and Rash (n)
Labs/Micro/Reports
Lab Data
09/20/23 05:04
09/20/23 05:04
[2023-09-20] MEDS: TORADOL 10 MG PO ×2 (09:33→21:27)
--- NOTE | 2023-09-20 12:43 | RESPNOTE ---
Exercise pulse oximetry done. Room air 100% walked 115 ft. patient felt chest tightness and SOB desaturation 86% r/a. Placed on 2L 115 ft desaturation 91%, still chest tightness and felt like she was gasping. Recovered 96% on 2L nasal cannula.
[2023-09-20] MEDS: FERRLECIT 110 MG IV (13:25)
--- NOTE | 2023-09-20 14:14 | CM ---
I checked in with Kayla today. She is undergoing testing and still unsure what is wrong. Support offered.
CM will continue to follow for discharge to home.
Plan: Discharge to home; Pt does not currently have PCP, but is going to establish PCP after discharge.
Ph[facility]acy: [facility]
[2023-09-20 14:24] LABS: tTG IgA Antibody 15.9 EU/ml (0-19); tTG IgG Antibody 10.7 EU/ml (0-19)
[2023-09-20 15:39] LABS: Troponin I < 0.012 ng/ml
--- NOTE | 2023-09-20 16:43 | W.PN.HOSP.TC ---
Today's Communication/Plan
-
see note
hold d/c one more night
Assessment / Plan
Assessment / Plan
Pneumomediastinum
Exertional dyspnea
-CT chest PE incidentally showing small lucency with pneumomediastinum. no PE
-Patient did have episode of vomiting today although dyspnea/chest tightness ongoing for 2 weeks less likely Beatriz-Farmer tear related pneumomediastinum
-No other sign of suggestive of ongoing infection. No fever episode in last 2 weeks.
-Esophagogram ruled out any esophageal perforation - starting regular diet from evening.
-Pulmonology evaluated and help appreciated.
-Repeat CT chest showing improvement in pneumomediastinum findings.
-Patient did exertional oxygen test and was desaturating to 86% on room air. Follow-up echocardiogram/PFT ordered. Troponin normal.
Anion gap metabolic acidosis - Resolved
-ketoacidosis with low oral intake vs colonic loss (had few episodes of diarrhea)
-VBG showing pH of 7.1, pCO2 28 pCO2 of 74
-No renal dysfunction. Not diabetic. Neg alc level. Neg LA level. Not on any meds/supplement.
-corrected with bicarb drip. stop furthe bicarb
Marijuana positive
-UDS positive for marijuana, patient emphatically denies using it
h/o gastric bypass
h/o intestinal repair
-done in , no complicating factors
Iron def anemia
-Ferritin ~ 7 only
-start ferlicit and will provide oral iron at discharge.
Sinus tachycardia
-with pneumomediastinum likely
-Lopressor with holding parameter started
Anxiety
-possibly induced by chest tightness/dyspnea
-prn xanax ordered.
DVTPPX-scd
Full code
Case discussed with Pulmonology
Patient discharged to be held 1 more night
Anticipated Discharge: Within 24 hours
Subjective/Interval History
-
Date of Service: September 20, 2023
Still has some chest tightness/pain with exertion
Heart rate better controlled
Objective Data
-
Labs:
Laboratory Results
09/20/23
05:04
WBC 5.3
Hgb 10.0 L
Hct 31.7 L
Plt Count 193
Sodium 137
Potassium 3.5
Chloride 100
Carbon Dioxide 26
BUN 11
Creatinine 0.5 L
Glucose 76
Calcium 9.4
Total Bilirubin 0.6
AST 27
ALT 14
Alkaline Phosphatase 67
Vital Signs:
Vital Signs
Temp Pulse Resp BP Pulse Ox
97.6 F 83 16 104/71 100
09/20/23 15:27 09/20/23 15:27 09/20/23 15:27 09/20/23 15:27 09/20/23 15:27
I&O
09/19/23 09/20/23 09/21/23
06:59 06:59 06:59
Intake Total 1800 / 1800 1080 / 1080
Balance 1800 / 1800 1080 / 1080
Review of Systems
-
Respiratory: Reports Trouble Breathing
Cardiac: Reports No Symptoms
Abdomen/GI: Reports No Symptoms
Physical Exam
-
General: No Apparent Distress and Comfortable
HEENT: Negative Oxygen
Respiratory: Clear to Auscultation
Cardiac: Regular Rhythm and S1/S2; Negative Murmur
GI: Soft, Nontender and Nondistended
Musculoskeletal: No Edema
Neuro: Awake, Alert, Oriented, No Motor Deficits and Nonfocal/Grossly Intact
Psych: Calm
[2023-09-20 23:27] LABS: IgA 560 mg/dl (70-400)
[2023-09-21] VITALS (7 sets, daily range): BP systolic 94–126; BP diastolic 63–88; O2SAT 76–100
[2023-09-21 01:40] LABS: Endomysial IgA Antibody Titer <1:10 (<1:10)
[2023-09-21 05:15] LABS: Hematocrit 30.2 % (37.0-47.0); Hemoglobin 9.5 g/dL (12.0-16.0); Mean Corp Hgb Conc. 31.5 g/dL (33.0-37.0); Mean Corpuscular Hgb 20.4 pg (27.0-31.0); Mean Corpuscular Volume 64.9 fL (81.0-99.0); Platelet Count 196 10^3/uL (130-400); Red Blood Cell Count 4.65 10^6/uL (4.20-5.40); Red Cell Dist. Width 19.9 % (11.5-14.5)
[2023-09-21 05:42] LABS: Blood Urea Nitrogen 18 mg/dl (7-17); Calcium 9.5 mg/dl (8.4-10.2); Carbon Dioxide 27 mmol/L (22-30); Chloride 103 mmol/L (98-107); Estimated Creatinine Clearance 104 ml/min; Glucose 81 mg/dl (70-99); Potassium 3.5 mmol/L (3.5-5.1); Sodium 139 mmol/L (135-145); eGFR > 60.00
[2023-09-21 05:54] LABS: Troponin I < 0.012 ng/ml
[2023-09-21] MEDS: LOPRESSOR PO (08:26)
--- NOTE | 2023-09-21 08:33 | W.PN.HOSP.TC ---
Today's Communication/Plan
-
see note
Assessment / Plan
Assessment / Plan
Pneumomediastinum
-CT chest PE incidentally showing small lucency with pneumomediastinum. no PE
-Patient did have episode of vomiting today although dyspnea/chest tightness ongoing for 2 weeks less likely Beatriz-Farmer tear related pneumomediastinum
-No other sign of suggestive of ongoing infection. No fever episode in last 2 weeks.
-Esophagogram ruled out any esophageal perforation
-Repeat CT chest showing improvement in pneumomediastinum findings
Exertional dyspnea and hypoxia
Small PFO
-Dyspnea initially felt to be related pneumomediastinum although hypoxia cannot be explained
-Patient with exertional hypoxia with O2 sat dropping in high 70s to low 80s
-Echocardiogram with bubble study showed small PFO, cardiology involved in care and after discussion with pulmonology getting RHC to rule out any true shunt physiology
-PFT did not show any obstructive/restrictive disease
-Discussed with pulmonology at length and planning to do ABG with exercise to rule out any other noncardiac shunts
Anion gap metabolic acidosis - Resolved
-ketoacidosis with low oral intake vs colonic loss (had few episodes of diarrhea)
-VBG showing pH of 7.1, pCO2 28 pCO2 of 74
-No renal dysfunction. Not diabetic. Neg alc level. Neg LA level. Not on any meds/supplement.
-corrected with bicarb drip. stop furthe bicarb
Marijuana positive
-UDS positive for marijuana, patient emphatically denies using it.
h/o gastric bypass
h/o intestinal repair
-done in , no complicating factors
Iron def anemia
-Ferritin ~ 7 only
-start ferlicit and will provide oral iron at discharge.
Sinus tachycardia
-with pneumomediastinum likely
-Lopressor with holding parameter started
Anxiety
-possibly induced by chest tightness/dyspnea
-prn xanax ordered.
DVTPPX-scd
Full code
Discussed with cardiology/pulmonology.
Total time spent : 53 mins
I personally saw and examined the patient.
I have reviewed all diagnostic interpretations and treatment plans as written.
Time includes patient management by me, time spent at the patients bedside, time to review lab and imaging results, discussing patient care, documentation in the medical record, and time spent with the family or caregiver and discussing care plan
with RN/Consultants.
Anticipated Discharge: > 48 hours
Subjective/Interval History
-
Date of Service: September 21, 2023
Patient blood pressure soft in the morning denies dizziness
No overt chest discomfort/shortness of breath
on o2 through NC
Objective Data
-
Labs:
Laboratory Results
09/21/23
04:41
WBC 5.0
Hgb 9.5 L
Hct 30.2 L
Plt Count 196
Sodium 139
Potassium 3.5
Chloride 103
Carbon Dioxide 27
BUN 18 H
Creatinine 0.5 L
Glucose 81
Calcium 9.5
Vital Signs:
Vital Signs
Temp Pulse Resp BP Pulse Ox
98.5 F 80 16 93/66 100
09/21/23 07:30 09/21/23 07:30 09/21/23 07:30 09/21/23 08:26 09/21/23 08:10
I&O
09/20/23 09/21/23 09/22/23
06:59 06:59 06:59
Intake Total 1080 / 1080 960 / 960
Balance 1080 / 1080 960 / 960
Review of Systems
-
Respiratory: Reports Trouble Breathing (with exertion)
Cardiac: Reports No Symptoms
Abdomen/GI: Reports No Symptoms
Physical Exam
-
General: No Apparent Distress and Comfortable
HEENT: Negative Oxygen
Respiratory: Clear to Auscultation
Cardiac: Regular Rhythm and S1/S2; Negative Murmur
GI: Soft, Nontender and Nondistended
Musculoskeletal: No Edema
Neuro: Awake, Alert, Oriented, No Motor Deficits and Nonfocal/Grossly Intact
Psych: Calm
--- NOTE | 2023-09-21 09:46 | W.PN.PUL.V3 ---
Today's Communication / Plan
-
Significant desaturation with minimal exertion
Check echo with bubble
Check PFT-including lung volumes and diffusing capacity
Check 100% shunt study
Check VQ scan
Consider tertiary evaluation
Assessment
-
43-year-old female without significant past pulmonary history who is a non-smoker, not on vapor and usually quite active including working out and presents with 2 weeks of shortness of breath and subsequent negative CT chest with pulm embolism
protocol, however, pneumomediastinum was noted as well as significant anion gap metabolic acidosis-pulmonary was consulted for shortness of breath/acidosis 09/19/2023.
Assessment
Shortness of breath and chest tightness-in part due to compensation for underlying metabolic acidosis
Metabolic acidosis-anion gap
VBG 09/18/2023--7.17
Pneumomediastinum
Hsnzjf-yywkzrlaam-klbxrrnfyt 10.0-MCV 64.6
Mild hyponatremia
Urine drug screen-positive marijuana-emphatically denies use-false positives can be seen with PPI ingestion, etc.
Conditions present prior to admission:
Anxiety.
Depression.
Polycystic ovarian syndrome.
Gastric bypass. Appendectomy. Left ankle surgery. D&C.
Plan
Etiology of respiratory decompensation not entirely clear-fairly sudden onset 2 weeks ago with increased shortness of breath and chest tightness and found to have pneumomediastinum
Pneumomediastinum-no history of trauma, did complain of some emesis but chronologically unlikely related, marijuana inhalation with breath-holding has been reported to cause occasional pneumothorax/pneumomediastinum-adamantly denies marijuana
use-suspect false positive
Wean supplemental oxygen
Rest and exercise oximetry personally performed on multiple fingers-room air 94%, rapidly desaturates into the 60s and 70% range with only mild tachycardia, symptomatic however with fairly rapid resolution and resumption of saturations back into the
90s with rest
Incentive spirometry
Nebulizers if needed-currently not bronchospastic
Workup thus far has been negative-CT, no PE, pneumomediastinum improved, echocardiogram unrevealing, chest clear, no history of trauma, negative esophagram
Shunt physiology a possibility, however, no history of recent trauma, previous AVMs or known cardiac issues
Spirometry 09/20/2023-normal
Echocardiogram 09/20/2023-normal, no RV strain
Check echocardiogram with bubble
Check 100% oxygen shunt study-reviewed with OVERAGE SHORTAGE AND DAMAGE CLERK
Check full PFTs
Check VQ scan
Consider transfer to tertiary center with unexplained pneumomediastinum and potential significant shunt
CT chest 09/18/2023 reviewed-summarized below
Esophageal x-ray 09/19/2023-no evidence for esophageal leak, unremarkable esophagram
CT chest 09/20/2023-improved pneumomediastinum, otherwise normal no contrast extravasation into the mediastinum to suggest esophageal tear
Echocardiogram 09/20/2023-normal biventricular size and systolic function, EF 60-65%, no mitral regurgitation, normal diastolic function, no right ventricular strain
Monitor for pneumomediastinum progression
No clinical evidence for mediastinitis-afebrile, no leukocytosis
Consider GI evaluation if symptoms persist
Monitor hemoglobin-currently 9.5
Transfuse as needed
Check iron studies
Continue to replace electrolytes as needed
DVT prophylaxis-recommended
Nutrition per primary service
Reviewed with Dr. Jorge, OVERAGE SHORTAGE AND DAMAGE CLERK and nursing
Consider tertiary evaluation
Outpatient ongoing pulm evaluation-possible cardiopulmonary stress test, etc.
Diagnostic data:
Chest x-ray 03/09/2022-NAD
CT abdomen and pelvis 03/10/22-3.5 cm left ovarian hemorrhagic cyst no acute inflammatory process in the abdomen or pelvis
CT chest 09/18/2023-scattered lucencies within the mediastinum and lower neck compatible with pneumomediastinum, no pulm embolism, no nodules or focal airspace disease or pleural effusions
.
Subjective Data
-
Date of Service:
Date of Service: September 21, 2023
Chief Complaint: Pulmonary Follow Up and Dyspnea Follow Up
Subjective:
Still has vague chest tightness, has shortness of breath with exertion, desaturates with exertion, no chest congestion, productive cough, abdominal pain, swallowing difficulties, dysphagia, leg swelling or weakness
Review of Systems
General: Other (Per HPI)
Objective Data
Data Reviewed
Vital Signs / I&O:
Vital Signs
Temp Pulse Resp BP Pulse Ox
98.5 F 80 16 93/66 100
09/21/23 07:30 09/21/23 07:30 09/21/23 07:30 09/21/23 08:26 09/21/23 08:10
Intake and Output
09/20/23 09/21/23 09/22/23
06:59 06:59 06:59
Intake Total 1080 / 1080 960 / 960
Balance 1080 / 1080 960 / 960
SaO2: 100
Nasal Cannula flow liters per minute: 2
Physical Exam
General: Respiratory Distress (n) and Comfortable
HEENT: Normocephalic, Anicteric, Moist Mucous Membranes, Other (No subcutaneous air) and Other (Trachea midline)
Cardiovascular: Regular Rhythm
Respiratory: Clear, Wheeze (n), Crackles (n), Rhonchi (n), Non-Labored Respirations, Accessory Resp Muscle Use and Stridor (n)
GI: Soft, Non Distended and Non Tender
Neurology: Awake, Alert and No Motor Deficits
Skin: Warm, Good Color, Cyanosis (n), Jaundice (n) and Rash (n)
Labs/Micro/Reports
Lab Data
09/21/23 04:41
09/21/23 04:41
--- NOTE | 2023-09-21 10:04 | PTCARENOTE ---
Pt in Cardiac Services for Bubble Study/Echo. Procedure completed per protocol with aseptic technique. Pt tolerated procedure well, Right arm 20 G PC utilized. IV site flushed pre and post procedure, site clear, no redness, no edema. Pt offers no
complaints, no change in status.
[2023-09-21 11:04] LABS: B.E. 2.6 mmol/L; HCO3 25.9 mmol/L (21-28); O2 Saturation % 98.7 % (94-98); PCO2 34 mmHg (32-35); PO2 113 mmHg (83-108); pH 7.49 (7.35-7.45)
--- NOTE | 2023-09-21 11:44 | CON.CAR ---
Addendum entered and electronically signed by Phil Mckeon MD 09/21/23 13:29:
I saw and examined the patient.
The BUSINESS STRATEGIST's note was reviewed and I agree with the note.
Comment: 43 y/o female with PCOS, anemia, and hx gastric bypass surgery 2006 who is here for about 2 weeks of EDWARDS. Her degree of hypoxia is out of proportion to her TTE findings. It is possible that she could have a shunt that we are not seeing,
and will obtain a RHC.
- RHC
- further recommendations to follow
Original Note:
Consultation
Consultation Request
Date/Time Consultation Requested: 09/21/23 1149
Date/Time Consultation Performed: 09/21/23 1200
Requesting Provider: Dr. Jorge
Performing Provider: Sonia SCHUMACHER for
Reason for Consultation: exertional hypoxia
Medical History
-
Chief Complaint: EDWARDS
History of Present Illness:
43 y/o female with PCOS, anemia, and hx gastric bypass surgery 2006 who is here for about 2 weeks of EDWARDS. Prior to that she went to the gym 5 times a week and has successfully lost weight over the past 2 years. She does not smoke, but was exposed to
2nd hand smoke with mother. CT imaging showed pneumomediastinum. Metabolic acidosis seen and improved. She desaturates with minimal activity. We are consulted to evaluate for cardiac cause.
Past Medical History
Past Medical History: Other (as above)
Social History
Tobacco: Non-Smoker
Drug: None
Family History
Family History: Other (dad had [place] age 25 related to 'overdeveloped muscle'?)
Allergies / Home Medications
Allergy/AdvReac Type Severity Reaction Status Date / Time
latex Allergy Rash Verified 09/18/23 11:30
Pertussis Vaccines Allergy seizure Verified 09/18/23 11:30
�Medication �Instructions �Recorded �Confirmed �Type
acetaminophen 325 mg tablet 650 mg PO Q4HPRN PRN mild pain 09/18/23 09/18/23 History
(Tylenol)
Review of Systems
-
History Source: Patient
Respiratory: Trouble Breathing
Physical Exam
Vital Signs
Temp Pulse Resp BP Pulse Ox
98.5 F 86 20 113/73 100
09/21/23 11:07 09/21/23 11:07 09/21/23 11:07 09/21/23 11:07 09/21/23 11:07
Lab Results
09/21/23 04:41
09/21/23 04:41
Troponin I < 0.012 ng/ml 09/21/23 04:41
Son-S-Gapexhhtzgt Pept 21.0 pg/ml 09/18/23 12:50
Physical Exam
General: Well Developed, Well Nourished and No Apparent Distress
HEENT: Normocephalic and Anicteric
Respiratory: Clear and Non Labored Respirations
Cardiac: Regular Rhythm
Musculoskeletal: No Edema
Skin: Warm and Dry
Neuro: AO x 3
Psych: Calm
Impression / Plan
-
Exertional hypoxia:
-severe in that she is reported to be desaturating to the 60's-70's with minimal exertion
-pneumomediastinum noted on imaging, improved. No PE noted.
-pulmonary is consulted, work-up has been underway
-echo normal, bubble study portion pending at time of my assessment
-likely plan for right heart catheterization to evaluate for shunt physiology- discussed diagnostic procedure with patient, likely plan for tomorrow
Anemia:
-chronic, seems stable overall
Data Reviewed
-
EKG: Tracing Personally Visualized and interpreted (NSR)
CT Scan: Report Reviewed by me (09/[address]- There is persistent pneumomediastinum, improved but incompletely resolved)
Medical Tests (Nuc Med, Echo etc): Report Reviewed by me (Echo 09/20/23: Normal biventricular size and systolic function without regional wall motion abnormality. No significant valvular disease. )
Labs: Labs Reviewed by me
[2023-09-21 11:51] LABS: B.E. 2.9 mmol/L; O2 Saturation % 99.5 % (94-98); PCO2 25 mmHg (32-35); PO2 464 mmHg (83-108); pH 7.59 (7.35-7.45)
[2023-09-21] MEDS: TORADOL 10 MG PO ×2 (12:19→19:51)
--- NOTE | 2023-09-21 12:27 | PN.CDI ---
CDI
- -
CDI:
Physician Documentation Request
Admit Date: 09/18/23 15:26
Dear Doctor Luisito,
H&P states 'worsening sob/chest tightness/acute hypoxic respiratory failure....'
Physical exam in H&P states respiratory clear.
ED respiratory exam 'Mildly tachypneic with walking and talking. Clear breath sounds'
Patient has been on 2L - RA.
Recognized standard criteria for respiratory failure includes:
(Source: [facility] Hospitalist Feb 2013)
ABGs (1 or more)
�PO2 <60 or RA SpO2 <91%
�PcO2 >50 and pH <7.35
�pO2 decrease or pcO2 increase by 10 mmHg from baseline if known Symptoms:
�Tachypnea, SOB, dyspnea
�Pallor or cyanosis
�Anxiety or restlessness
�Use of accessory muscles
�Retractions (grunting in newborns)
�Unable to speak in complete sentences
Supplemental O2 requirement of 40% (5LPM) or more Intubation is not required
Based on the above information and the recognized standard for respiratory failure could you please verify this diagnoses is still accurate and reflective of the patient�s condition to ensure quality of the medical record.
Please clarify in the Progress Notes:
�Respiratory failure is/was present and is a clinical diagnosis based on (please include this additional support in the medical record)
�After study respiratory failure has been ruled out
�Other
Use of terms such as suspected, likely, concern for, or probable (associated with a specific diagnosis that is being evaluated, monitored, or treated as if it exists) are acceptable and can be coded in the inpatient setting, when documented at the
time of discharge.
Thank you,
Jina Horton RN, BSN
CDI Specialist
[place] text
Please use your independent medical judgment in providing your response.
[2023-09-21] MEDS: FERRLECIT 110 MG IV (13:24)
--- NOTE | 2023-09-21 15:06 | CM ---
I met briefly with Kayla this morning, however she was going to be having pulse ox testing with Respiratory. I returned later in the day and she was asleep.
Plan: Return in AM to discuss anticipated discharge needs with Kayla.
[2023-09-21] MEDS: LOPRESSOR 12.5 MG PO (19:44)
[2023-09-22] VITALS (16 sets, daily range): BP systolic 99–140; BP diastolic 68–90; O2SAT 85–100
[2023-09-22] MEDS: LOPRESSOR 12.5 MG PO ×2 (08:10→20:30)
--- NOTE | 2023-09-22 10:12 | PTCARENOTE ---
Received patient from Parts Pull[employer] via bed. AAOx3. Bedrest ordered for 3 hours with RLE to be kept straight. Dressing CDI. +pulse +sensation. Patient requesting pain medication. MD to be notified. Will continue to monitor.
--- NOTE | 2023-09-22 10:13 | W.PN.PUL3 ---
Today's Communication / Plan
-
RHC reviewed, no significant PH, but confirmed exertional hypoxemia
All w/u thus far negative, except small PFO found on bubble
May need to look at CT AP IV for completeness, but will wait 24 hours (for observation of kidney function post cath)
Also, consideration for stress ECHO to look at PFO
Ultimately may need transfer to tertiary center if no diagnoses is obtained
Assessment
-
43-year-old female without significant past pulmonary history who is a non-smoker, not on vapor and usually quite active including working out and presents with 2 weeks of shortness of breath and subsequent negative CT chest with pulm embolism
protocol, however, pneumomediastinum was noted as well as significant anion gap metabolic acidosis-pulmonary was consulted for shortness of breath/acidosis 09/19/2023.
Exertional hypoxemia
Shortness of breath and chest tightness-in part due to compensation for underlying metabolic acidosis
Metabolic acidosis-anion gap
VBG 09/18/2023--/7.17
Pneumomediastinum
Nzlkyb-xwhuisjdcf-cpbvtcznra 10.0-MCV 64.6
Mild hyponatremia
Urine drug screen-positive marijuana-emphatically denies use-false positives can be seen with PPI ingestion, etc.
Conditions present prior to admission:
Anxiety.
Depression.
Polycystic ovarian syndrome.
Gastric bypass. Appendectomy. Left ankle surgery. D&C.
Plan
Etiology of respiratory decompensation not entirely clear-fairly sudden onset 2 weeks ago with increased shortness of breath and chest tightness and found to have pneumomediastinum
Pneumomediastinum-no history of trauma, did complain of some emesis but chronologically unlikely related, marijuana inhalation with breath-holding has been reported to cause occasional pneumothorax/pneumomediastinum-adamantly denies marijuana
use-suspect false positive
Wean supplemental oxygen
Rest and exercise oximetry personally performed on multiple fingers-room air 94%, rapidly desaturates into the 60s and 70% range with only mild tachycardia, symptomatic however with fairly rapid resolution and resumption of saturations back into the
90s with rest
Incentive spirometry
Nebulizers if needed-currently not bronchospastic
Workup thus far has been negative-CT, no PE, pneumomediastinum improved, echocardiogram unrevealing, chest clear, no history of trauma, negative esophagram
Shunt physiology a possibility, however, no history of recent trauma, previous AVMs or known cardiac issues
Spirometry 09/20/2023-normal
Echocardiogram 09/20/2023-normal, no RV strain
CT Chest negative
Echocardiogram with bubble--small PFO is noted
100% oxygen shunt study-reviewed with SHEET METAL ERECTOR-- baseline on RA ABG 7.49/34/113/25/98% on 100% ABG 7.59/25/464/99%, this does not show significant shunt physiology
Full PFTs-- shows normal function, DLCO 90%
VQ scan--normal
Consider CT AP IV for total evaluation
Ultimately may need to consider transfer to tertiary center with unexplained pneumomediastinum and potential significant shunt
CT chest 09/18/2023 reviewed-summarized below
Esophageal x-ray 09/19/2023-no evidence for esophageal leak, unremarkable esophagram
CT chest 09/20/2023-improved pneumomediastinum, otherwise normal no contrast extravasation into the mediastinum to suggest esophageal tear
Echocardiogram 09/20/2023-normal biventricular size and systolic function, EF 60-65%, no mitral regurgitation, normal diastolic function, no right ventricular strain
Monitor for pneumomediastinum progression
No clinical evidence for mediastinitis-afebrile, no leukocytosis
Consider GI evaluation if symptoms persist
Monitor hemoglobin-currently 9.5
Transfuse as needed
Check iron studies
Continue to replace electrolytes as needed
DVT prophylaxis-recommended
Nutrition per primary service
Reviewed with Dr. Jorge, SHEET METAL ERECTOR and nursing
Consider tertiary evaluation
Outpatient ongoing pulm evaluation-possible cardiopulmonary stress test, etc.
Diagnostic data:
Chest x-ray 03/09/2022-NAD
CT abdomen and pelvis 03/10/22-3.5 cm left ovarian hemorrhagic cyst no acute inflammatory process in the abdomen or pelvis
CT chest 09/18/2023-scattered lucencies within the mediastinum and lower neck compatible with pneumomediastinum, no pulm embolism, no nodules or focal airspace disease or pleural effusions
.
Subjective Data
-
Date of Service:
Date of Service: September 22, 2023
Chief Complaint: Pulmonary Follow Up and Dyspnea Follow Up
Subjective:
s/p RHC, still with exertional hypoxemia
No changes from prior
Objective Data
Data Reviewed
Vital Signs / I&O / Oxygen:
Vital Signs
Temp Pulse Resp BP Pulse Ox
97.9 F 82 16 112/78 98
09/22/23 10:00 09/22/23 10:00 09/22/23 10:00 09/22/23 10:00 09/22/23 10:00
Intake and Output
09/21/23 09/22/23 09/23/23
06:59 06:59 06:59
Intake Total 960 / 960 590 / 590
Balance 960 / 960 590 / 590
SaO2 98
Nasal Cannula flow liters per 60
minute
Physical Exam
General: Respiratory Distress (n) and Comfortable
HEENT: Normocephalic, Anicteric, Moist Mucous Membranes, Other (No subcutaneous air) and Other (Trachea midline)
Cardiovascular: Regular Rhythm
Respiratory: Clear, Wheeze (n), Crackles (n), Rhonchi (n), Non-Labored Respirations, Accessory Resp Muscle Use and Stridor (n)
GI: Soft, Non Distended and Non Tender
Neurology: Awake, Alert, Oriented, AO x 3 and No Motor Deficits
Skin: Warm, Good Color, Cyanosis (n), Jaundice (n) and Rash (n)
Labs/Micro/Reports
Laboratory Results
09/21/23 09/21/23
10:53 11:40
pH 7.49 H 7.59 H
pCO2 34 25 L
pO2 113 H 464 H
HCO3 25.9 24.0
O2 Delivery Level
[2023-09-22 10:42] LABS: Hematocrit 30.8 % (37.0-47.0); Hemoglobin 9.5 g/dL (12.0-16.0); Mean Corp Hgb Conc. 30.8 g/dL (33.0-37.0); Mean Corpuscular Hgb 20.7 pg (27.0-31.0); Mean Platelet Volume 10.1 fL (7.4-10.4); Platelet Count 196 10^3/uL (130-400); Red Cell Dist. Width 20.1 % (11.5-14.5); White Blood Cell Count 5.3 10^3/uL (4.8-10.8)
--- NOTE | 2023-09-22 10:50 | CM ---
Kayla had a heart catheterization this morning and I visited her when she returned. She voiced that procedures and hospitalizations are scary. Support provided.
Cm will continue to follow to assist with discharge planning needs as identified during hospitalization.
Plan: Discharge to home with no current needs identified.
No PCP at present; plans to establish PCP after discharge.
Pharmacy: [facility]
[2023-09-22 10:56] LABS: Blood Urea Nitrogen 17 mg/dl (7-17); Calcium 9.2 mg/dl (8.4-10.2); Carbon Dioxide 27 mmol/L (22-30); Chloride 103 mmol/L (98-107); Estimated Creatinine Clearance 104 ml/min; Glucose 96 mg/dl (70-99); Potassium 3.7 mmol/L (3.5-5.1); Sodium 139 mmol/L (135-145); eGFR > 60.00
[2023-09-22] MEDS: ROXICODONE 5 MG PO ×2 (10:57→20:38)
--- NOTE | 2023-09-22 12:25 | ITS.CL.CATH ---
Pharmacy Technician Per Diem - Catheterization
Cardiac Catheterization
Procedure Report:
CARDIAC CATHETERIZATION REPORT
Date of Procedure: 09/22/2023
Referring: Phil Mckeon M.D.
Indication: Ambulatory hypoxia, chest pressure, shortness of breath.
PROCEDURE:
1. Right heart catheterization.
2. Left heart catheterization.
3. Coronary angiography.
4. Left ventriculography.
5. Exercise provocation.
ACCESS:
6 [place] right common femoral artery using a modified Seldinger technique with a micropuncture kit under ultrasound guidance.
5 [place] right common femoral vein using a modified Seldinger technique with a micropuncture kit under ultrasound guidance.
CATHETERS:
1. 5 [place] balloon wedge.
2. 6 [place] JR4.
3. 6 [place] JL4.
4. 5 [place] angled pigtail.
HEMODYNAMIC DATA (Baseline)
Weight (kg): 61.2
AO (s/d/x mmHg): 130/83/102
LV (s/x mmHg): 132/8
PCWP (a/v/x mmHg):
PA (s/d/x mmHg): 27/01/13
RV (s/x mmHg): 20/6
RA (a/v/x mmHg):
SVC SvO2 (%): 67.1
IVC SvO2 (%): 79.3
RA SvO2 (%): 72.5
RV SvO2 (%): [ ]
PA SvO2 (%): 71.8
SaO2 (%): 98.9
Hbg (g/dL): 9.5
CO (L/min): 5.33
CI (L/min/m2): 3.22
TPG (mmHg): 4
PVR (Funez Units): 0.75
SVR (dynes*seconds*cm^-5): 1426
AVO2 Diff (Volume %): 3.50
Post Exercise
AO (s/d/x mmHg): 162/94/123
PA (s/d/x mmHg): /
PA SvO2 (%): 63.4
SaO2 (%): 99.5 (assumed)
CO (L/min): 3.78
CI (L/min/m2): 2.28
AV gradient (x, mmHg): None.
AV area (cm2): Normal.
LEFT VENTRICULOGRAPHY: Performed in an ANGUIANO projection. Normal left ventricular size and systolic function with normal wall motion. LV ejection fraction estimated at 60%. No VSD is visualized. There is no mitral regurgitation. There is no
aortic valve insufficiency. The aortic root, visualized ascending and descending aorta appear normal.
CORONARY ANGIOGRAPHY
Dominance: Right.
Left Main: Normal size, trifurcating vessel. There is no coronary artery disease.
LAD: Normal size vessel giving rise to several small diagonals. There is no coronary artery disease.
Ramus: Medium size vessel supplying much of the anterolateral wall. There is no coronary artery disease.
Circumflex: Normal size, nondominant vessel giving rise to a single obtuse marginal which subsequently bifurcates into 2 daughter vessels. There is no coronary artery disease. The obtuse marginal and the daughter vessels are moderate to severely
tortuous.
RCA: Normal size, dominant vessel. There is no coronary artery disease.
INTERVENTIONS
1. Exercise provocation.
Narrative:
After performing baseline evaluation. I asked the patient to perform leg lifting exercises in order to provoke her exercise-induced hypoxia. The patient was able to do leg lift for approximately 30 seconds before her fatigue caused her to stop.
During this exercise, her plethysmography arterial saturation dipped to approximately 70%. Oxygen saturation was drawn from the aorta as well as the pulmonary artery. This demonstrated stable aortic oxygen saturation but a notable dip in the
pulmonary artery saturation, implying decreased cardiac output/cardiac index.
Closure Device: 6 [place] Angio-Seal for the right common femoral artery, manual pressure for the right common femoral vein.
Radiation dose (mGy): 178.81
DAP (cm2.Gy): 13.3606
Fluoroscopy time (minutes): 5.8
Sedation time (minutes): 32
CONCLUSIONS:
1. Right dominant circulation with no coronary artery disease.
2. Normal filling pressures (LVEDP = 8 mmHg, PCWP = 9 mmHg at 61.2 kg).
3. Normal left ventricular systolic function (LV ejection fraction = 60%).
4. Globally normal cardiac function (cardiac index 3.22 L/min/m�).
5. Poor exercise tolerance with a drop in measured cardiac index (2.28 L/min/m�) with exercise but appropriate rise in systemic and pulmonary artery pressures.
6. Arterial desaturation on plethysmography (70%) during exercise, but not observed on direct arterial blood sampling (99.5%). This raises the possibility of a more distal shunt versus plethysmography artifact.
7. No evidence of left to right shunt.
RECOMMENDATIONS:
1. Expectant management after cardiac catheterization via right common femoral approach.
2. Limited weight bearing for one week.
3. Continue evaluation for isolated exertional hypoxia. Consider extracardiac shunt (unobserved nonpulmonary AV malformation?).
Copy to: Phil Mckeon M.D.
Joe Arndt, DO, FACC, FACP
--- NOTE | 2023-09-22 12:50 | W.PN.HOSP.TC ---
Today's Communication/Plan
-
exertion o2 test when able
ct a/p possible tomorrow
Assessment / Plan
Assessment / Plan
Pneumomediastinum
-CT chest PE incidentally showing small lucency with pneumomediastinum. no PE
-Patient did have episode of vomiting today although dyspnea/chest tightness ongoing for 2 weeks less likely Beatriz-Farmer tear related pneumomediastinum
-No other sign of suggestive of ongoing infection. No fever episode in last 2 weeks.
-Esophagogram ruled out any esophageal perforation
-Repeat CT chest showing improvement in pneumomediastinum findings
Exertional dyspnea and hypoxia
Small PFO
-Dyspnea initially felt to be related pneumomediastinum although hypoxia cannot be explained
-Patient with exertional hypoxia with O2 sat dropping in high 70s to low 80s
-Echocardiogram with bubble study showed small PFO, RHC did not show any shunt physiology
-simultaneous LHC done and no CAD
-PFT did not show any obstructive/restrictive disease. Normal DLCO
-VQ sca neg for any mismatch
-Consideration to do an CTA a/p to r/o extra pulm/card shunt, needs contrast washout
Anion gap metabolic acidosis - Resolved
-ketoacidosis with low oral intake vs colonic loss (had few episodes of diarrhea)
-VBG showing pH of 7.1, pCO2 28 pCO2 of 74
-No renal dysfunction. Not diabetic. Neg alc level. Neg LA level. Not on any meds/supplement.
-corrected with bicarb drip. stop furthe bicarb
Marijuana positive
-UDS positive for marijuana, patient emphatically denies using it.
h/o gastric bypass
h/o intestinal repair
-done in , no complicating factors
Iron def anemia
-Ferritin ~ 7 only
-start ferlicit and will provide oral iron at discharge.
Sinus tachycardia
-with pneumomediastinum likely
-Lopressor with holding parameter started
Anxiety
-possibly induced by chest tightness/dyspnea
-prn xanax ordered.
DVT PPX-scd
Full code
Discussed with cardiology/pulmonology.
Anticipated Discharge: Within 24 hours
Subjective/Interval History
-
Date of Service: September 22, 2023
Having some left-sided discomfort post heart cath
On oxygen through nasal cannula 2 L
no other acute issues reported
Objective Data
-
Labs:
Laboratory Results
09/22/23
10:23
WBC 5.3
Hgb 9.5 L
Hct 30.8 L
Plt Count 196
Sodium 139
Potassium 3.7
Chloride 103
Carbon Dioxide 27
BUN 17
Creatinine 0.5 L
Glucose 96
Calcium 9.2
Vital Signs:
Vital Signs
Temp Pulse Resp BP Pulse Ox
98.2 F 82 18 119/87 96
09/22/23 11:45 09/22/23 12:13 09/22/23 12:13 09/22/23 12:13 09/22/23 12:13
I&O
09/21/23 09/22/23 09/23/23
06:59 06:59 06:59
Intake Total 960 / 960 590 / 590
Balance 960 / 960 590 / 590
Review of Systems
-
Respiratory: Reports No Symptoms
Cardiac: Reports No Symptoms
Abdomen/GI: Reports No Symptoms
Physical Exam
-
General: No Apparent Distress and Comfortable
HEENT: Negative Oxygen
Respiratory: Clear to Auscultation
Cardiac: Regular Rhythm and S1/S2; Negative Murmur
GI: Soft, Nontender and Nondistended
Musculoskeletal: No Edema
Neuro: Awake, Alert, Oriented, No Motor Deficits and Nonfocal/Grossly Intact
Psych: Calm
[2023-09-22] MEDS: FERRLECIT 110 MG IV (15:09)
[2023-09-23] MEDS: ROXICODONE 5 MG PO ×2 (00:51→13:12)
[2023-09-23 03:27] VITALS: BP 94/66
[2023-09-23 07:23] LABS: Hematocrit 29.5 % (37.0-47.0); Hemoglobin 8.8 g/dL (12.0-16.0); Mean Corp Hgb Conc. 29.8 g/dL (33.0-37.0); Mean Corpuscular Hgb 20.4 pg (27.0-31.0); Mean Corpuscular Volume 68.4 fL (81.0-99.0); Platelet Count 180 10^3/uL (130-400); Red Blood Cell Count 4.31 10^6/uL (4.20-5.40); Red Cell Dist. Width 20.1 % (11.5-14.5); White Blood Cell Count 4.6 10^3/uL (4.8-10.8)
--- NOTE | 2023-09-23 07:36 | W.PN.CD ---
Today's Communication / Plan
-
-Stable for discharge from cardiac standpoint.
Impression / Plan
-
Exertional hypoxia:
-severe in that she is reported to be desaturating to the 60's-70's with minimal exertion
-pneumomediastinum noted on imaging, improved. No PE noted.
-Repeat imaging shows improving pneumomediastinum.
-echo normal, PFO noted.
-Cardiac catheterization was done that shows no signs of intracardiac shunting. No sign of right to left shunt. PFO is small and not significant.
-No sign of desaturations noted in the heart.
-Unclear etiology of hypoxia/peripheral desaturations. Could be related to peripheral artery disease versus Raynaud's.
-Patient is otherwise doing much better.
-Repeat chest x-ray/CT chest in 3 months to follow-up on the pneumomediastinum.
-Stable for discharge from cardiac standpoint.
Anemia:
-chronic, seems stable overall
Physical Exam
Vital Signs/Labs
Vital Signs
Temp Pulse Resp BP Pulse Ox
98.5 F 76 18 94/66 99
09/23/23 03:27 09/23/23 03:27 09/23/23 03:27 09/23/23 03:27 09/23/23 03:27
09/18/23
12:50
Hzi-F-Lghkghbgajt Pept 21.0
LAB Results
09/20/23 09/21/23
14:37 04:41
Troponin I < 0.012 < 0.012
Physical Exam
Constitutional: No acute distress and Comfortable
EENT: Anicteric and Moist mucous membranes
Cardiovascular: Rhythm & rate is regular, Pedal edema is absent and JVD pressure is normal
Respiratory: Respiratory effort normal, Lungs clear to auscul. and Wheeze Absent
GI: Soft, Non tender and Normal bowel sounds
Neuro/Psych: Alert, Oriented, AO x 3 and Motor deficits absent
Other: Cath Site
Data Reviewed
-
Date of Service: September 23, 2023
Medical Decision Making: Reviewed Test Results, Independent Historian Assessment, Test Interpretation and Review of Case with other Provider
EKG: Tracing Personally Visualized and interpreted
Echo: Report Reviewed by me
X-Ray/CT/US/MRI/NUC/PET: Image Personally Visualized and interpreted
Labs: Labs Reviewed by me
Old Records: Reviewed
[2023-09-23 07:40] LABS: Blood Urea Nitrogen 14 mg/dl (7-17); Calcium 8.9 mg/dl (8.4-10.2); Carbon Dioxide 28 mmol/L (22-30); Chloride 102 mmol/L (98-107); Estimated Creatinine Clearance 104 ml/min; Glucose 81 mg/dl (70-99); Potassium 4.1 mmol/L (3.5-5.1); Sodium 136 mmol/L (135-145); eGFR > 60.00
[2023-09-23 07:55] VITALS: BP 98/65
[2023-09-23] MEDS: LOPRESSOR 12.5 MG PO (08:56)
[2023-09-23] MEDS: FLUSH (NSS) 1 FLUSH IV (08:57)
[2023-09-23 11:39] VITALS: BP 108/70
--- NOTE | 2023-09-23 11:53 | W.PN.HOSP.TC ---
Addendum entered and electronically signed by Jose Jorge MD 09/24/23 14:00:
Add on to dx list:
Acute hypoxic resp insufficiency
Original Note:
Today's Communication/Plan
-
d/c planning home
Assessment / Plan
Assessment / Plan
Pneumomediastinum
-CT chest PE incidentally showing small lucency with pneumomediastinum. no PE
-Patient did have episode of vomiting today although dyspnea/chest tightness ongoing for 2 weeks less likely Beatriz-Farmer tear related pneumomediastinum
-No other sign of suggestive of ongoing infection. No fever episode in last 2 weeks.
-Esophagogram ruled out any esophageal perforation
-Repeat CT chest showing improvement in pneumomediastinum findings
Exertional dyspnea and hypoxia
Small PFO
-Dyspnea initially felt to be related pneumomediastinum although hypoxia cannot be explained
-Patient with exertional hypoxia with O2 sat dropping in high 70s to low 80s
-Echocardiogram with bubble study showed small PFO, RHC did not show any shunt physiology
-simultaneous LHC done and no CAD
-PFT did not show any obstructive/restrictive disease. Normal DLCO
-VQ sca neg for any mismatch
-Consideration to do an CTA a/p to r/o extra pulm/card shunt, multiple contrast studies done this visit and trying to avoid GIRISH.
Anion gap metabolic acidosis - Resolved
-ketoacidosis with low oral intake vs colonic loss (had few episodes of diarrhea)
-VBG showing pH of 7.1, pCO2 28 pCO2 of 74
-No renal dysfunction. Not diabetic. Neg alc level. Neg LA level. Not on any meds/supplement.
-corrected with bicarb drip. stop furthe bicarb
Marijuana positive
-UDS positive for marijuana, patient emphatically denies using it.
h/o gastric bypass
h/o intestinal repair
-done in , no complicating factors
Iron def anemia
-Ferritin ~ 7 only
-start ferlicit and will provide oral iron at discharge.
Sinus tachycardia
-with pneumomediastinum likely
-Lopressor with holding parameter started
Anxiety
-possibly induced by chest tightness/dyspnea
-prn xanax ordered.
DVT PPX-scd
Full code
Discussed with patient's at bedside
Patient is in need of oxygen on exertion due to pulse oximetry of 96% on room air at rest; 87% on room air with exertion.
Patient was placed on 2L O2 via nasal cannula with saturation of 94%. Oxygen will help to improve hypoxemia.
Patient is mobile within the home.
Oxygen will improve the patient's symptoms.
Anticipated Discharge: Today
Subjective/Interval History
-
Date of Service: September 23, 2023
resting comfortably in bed
chest tightness/shortness breath better on ambulation than on admisssion
Objective Data
-
Labs:
Laboratory Results
09/23/23
06:12
WBC 4.6 L
Hgb 8.8 L
Hct 29.5 L
Plt Count 180
Sodium 136
Potassium 4.1
Chloride 102
Carbon Dioxide 28
BUN 14
Creatinine 0.5 L
Glucose 81
Calcium 8.9
Vital Signs:
Vital Signs
Temp Pulse Resp BP Pulse Ox
97.6 F 76 16 108/70 100
09/23/23 11:39 09/23/23 11:39 09/23/23 11:39 09/23/23 11:39 09/23/23 11:39
I&O
09/22/23 09/23/23 09/24/23
06:59 06:59 06:59
Intake Total 590 / 590 1460 / 1460
Balance 590 / 590 1460 / 1460
Review of Systems
-
Respiratory: Reports No Symptoms
Cardiac: Reports No Symptoms
Abdomen/GI: Reports No Symptoms
Physical Exam
-
General: No Apparent Distress and Comfortable
HEENT: Negative Oxygen
Respiratory: Clear to Auscultation
Cardiac: Regular Rhythm and S1/S2; Negative Murmur
GI: Soft, Nontender and Nondistended
Musculoskeletal: No Edema
Neuro: Awake, Alert, Oriented, No Motor Deficits and Nonfocal/Grossly Intact
Psych: Calm
--- NOTE | 2023-09-23 14:04 | W.PN.PUL3 ---
Today's Communication / Plan
-
Oxygen supplementation with exertion
Outpatient pulmonary follow-up
Sign off
Stable for discharge
Assessment
-
43-year-old female without significant past pulmonary history who is a non-smoker, not on vapor and usually quite active including working out and presents with 2 weeks of shortness of breath and subsequent negative CT chest with pulm embolism
protocol, however, pneumomediastinum was noted as well as significant anion gap metabolic acidosis-pulmonary was consulted for shortness of breath/acidosis 09/19/2023.
Exertional hypoxemia
Shortness of breath and chest tightness-in part due to compensation for underlying metabolic acidosis
Metabolic acidosis-anion gap
VBG 09/18/2023--.17
Pneumomediastinum
Uurbuj-crmtmwknhl-znjtoksmlm 10.0-MCV 64.6
Mild hyponatremia
Urine drug screen-positive marijuana-emphatically denies use-false positives can be seen with PPI ingestion, etc.
Conditions present prior to admission:
Anxiety.
Depression.
Polycystic ovarian syndrome.
Gastric bypass. Appendectomy. Left ankle surgery. D&C.
Plan
Etiology of respiratory decompensation not entirely clear-fairly sudden onset 2 weeks ago with increased shortness of breath and chest tightness and found to have pneumomediastinum.
On admission with severe anion gap metabolic acidosis.
Pneumomediastinum-no history of trauma, did complain of some emesis but chronologically unlikely related, marijuana inhalation with breath-holding has been reported to cause occasional pneumothorax/pneumomediastinum-adamantly denies marijuana
use-suspect false positive
Overall clinically improved.
No oxygen saturation at rest.
Mild oxygen saturation with exertion requiring 2 to 3 L.
Appears nontoxic.
Metabolic acidosis has resolved. Extensive workup so far negative.
Rest and exercise oximetry personally performed on multiple fingers-room air 94%, rapidly desaturates into the 60s and 70% range with only mild tachycardia, symptomatic however with fairly rapid resolution and resumption of saturations back into the
90s with rest
Incentive spirometry
-
Workup thus far has been negative-CT, no PE, pneumomediastinum improved, echocardiogram unrevealing, chest clear, no history of trauma, negative esophagram
Shunt physiology a possibility, however, no history of recent trauma, previous AVMs or known cardiac issues
Spirometry 09/20/2023-normal
Echocardiogram 09/20/2023-normal, no RV strain
CT Chest negative
Echocardiogram with bubble--small PFO is noted
100% oxygen shunt study-reviewed with [facility] BEH[facility]IOR ANALYST-- baseline on RA ABG 7.49/34/113/25/98% on 100% ABG 7.59/25/464/99%, this does not show significant shunt physiology
Full PFTs-- shows normal function, DLCO 90%
VQ scan--normal
Consider CT AP IV for total evaluation-can be done in the outpatient setting as ABG with child testing not consistent with it. Suspicion is not very high.
-
? Peripheral causes such as Raynaud's phenomena. Will need to be evaluated in the outpatient setting for
If persistent may consider tertiary care [facility].
Currently appears nontoxic.
Improved since admission.
CT chest 09/18/2023 reviewed-summarized below
Esophageal x-ray 09/19/2023-no evidence for esophageal leak, unremarkable esophagram
CT chest 09/20/2023-improved pneumomediastinum, otherwise normal no contrast extravasation into the mediastinum to suggest esophageal tear
Echocardiogram 09/20/2023-normal biventricular size and systolic function, EF 60-65%, no mitral regurgitation, normal diastolic function, no right ventricular strain
Monitor for pneumomediastinum progression
No clinical evidence for mediastinitis-afebrile, no leukocytosis
Recommend repeat CT chest in 3 months to document complete resolution 12/2023.
Monitor hemoglobin-currently 9.5-microcytic.
Transfuse as needed
Continue to replace electrolytes as needed
DVT prophylaxis-recommended
Reviewed with Dr. Jorge, FI[employer] BEHAVIOR ANALYST and nursing
Consider tertiary evaluation in the outpatient setting.
Outpatient ongoing pulm evaluation-possible cardiopulmonary stress test, etc.
-
No additional recommendation from the pulmonary perspective.
Okay to discharge from my perspective
Information will be left in the chart for follow-up in our office in the future.
Sign off
Diagnostic data:
Chest x-ray 03/09/2022-NAD
CT abdomen and pelvis 03/10/22-3.5 cm left ovarian hemorrhagic cyst no acute inflammatory process in the abdomen or pelvis
CT chest 09/18/2023-scattered lucencies within the mediastinum and lower neck compatible with pneumomediastinum, no pulm embolism, no nodules or focal airspace disease or pleural effusions
.
Subjective Data
-
Date of Service:
Date of Service: September 23, 2023
Chief Complaint: Pulmonary Follow Up and Dyspnea Follow Up
Subjective:
No new complaints
Overall better since admission
No oxygen requirement at rest
Mild oxygen desaturation with exertion
Denies exertional chest pain.
Objective Data
Data Reviewed
Vital Signs / I&O / Oxygen:
Vital Signs
Temp Pulse Resp BP Pulse Ox
97.6 F 76 16 108/70 100
09/23/23 11:39 09/23/23 11:39 09/23/23 11:39 09/23/23 11:39 09/23/23 11:39
Intake and Output
09/22/23 09/23/23 09/24/23
06:59 06:59 06:59
Intake Total 590 / 590 1460 / 1460
Balance 590 / 590 1460 / 1460
SaO2 100
Nasal Cannula flow liters per 2
minute
Physical Exam
General: Respiratory Distress (n) and Comfortable
HEENT: Normocephalic, Anicteric, Moist Mucous Membranes, Other (No subcutaneous air) and Other (Trachea midline)
Cardiovascular: Regular Rhythm
Respiratory: Clear, Wheeze (n), Crackles (n), Rhonchi (n), Non-Labored Respirations, Accessory Resp Muscle Use and Stridor (n)
GI: Soft, Non Distended and Non Tender
Neurology: Awake, Alert, Oriented, AO x 3 and No Motor Deficits
Skin: Warm, Good Color, Cyanosis (n), Jaundice (n) and Rash (n)
Labs/Micro/Reports
Lab Data
09/23/23 06:12
09/23/23 06:12
[2023-09-23] MEDS: FERRLECIT 110 MG IV (14:33)
--- NOTE | 2023-09-23 14:56 | CM ---
Addendum entered by Geni Benitez 09/23/23 15:13:
Call with [employer]- portable to be delivered approx 1700
Update to pt and nursing
If issues with [employer] after hours, Stormy is contact [phone]
Original Note:
CM reviewed pt with Dr Jorge- ready for dc
Pt qualifies for home oxygen
Bedside meeting with pt
DME provider choices discussed
Referral and script sent to [facility]
Portable to be delivered bedside for ride home later today
Copy of O2 script placed juan diego chart
No other dc needs noted
Discharge Disposition- home with new O2/[employer]
[2023-09-23 15:24] VITALS: BP 103/74
--- NOTE | 2023-09-24 14:49 | W.DCSUMMARY ---
Discharge Summary
Discharge Data
Date of Admission: 09/18/23
Date of Discharge: 09/23/23
-
Pending Results: No
Hospital Course
Discharging Physician : Dr Jose Jorge
Disposition : home with home care
Primary care physician : Unknown
Principal Discharge diagnosis :
Pneumomediastinum, unclear etiology
Exertional hypoxia, unclear etiology
Small patent [place]an ov[place]
Anion gap metabolic acidosis/ketoacidosis
Marijuana positive on urine drug screen
Sinus tachycardia
Chronic Discharge diagnosis :
History of gastric bypass
History of intestinal repair
Iron deficient anemia
Anxiety
Episodic headache
Hospital Course :
Patient is a 43-year-old female with above mentioned past medical history came to ER with ongoing shortness of breath/chest tightness for 2 to 3 weeks. Patient had 1 episode of vomiting on day of ER visit with reported cardiopulmonary symptoms.
Evaluation in ER patient was noted to be tachycardic although not hypoxic. Clinical concern initially was for PE and a CT chest PE was done which did not show any pulmonary parenchymal or vasculature abnormalities. Patient was incidentally found
to having pneumomediastinum reason for which she was unclear from clinical presentation and history. Patient was admitted to medical floor for further monitoring and pulmonary evaluation. Due to patient reported vomiting episode and esophagogram
was done which ruled out any esophageal perforation. There was no other sign of suggestive of traumatic or infectious nature of pneumomediastinum. Patient was monitored off of antibiotics. Repeat CT chest was done which showed improvement of
pneumomediastinum finding.
Patient was noted to be having exertional hypoxia which was not able to be clinically explained. An echocardiogram with bubble study was done which showed a small PFO. Patient had PFT with DLCO and no obstructive/diffusion defect were found.
Cardiology was involved in care and patient had right and left heart catheterization which did not show any shunt physiology. Coronaries were clean. A VQ scan was done which did not show any ventilation/perfusion mismatch. There was concern of
patient having an extra cardiac shunt physiology but was unable to be confirmed. Patient continued to remain hypoxic with exertion only and oxygen arrangements were made. Patient was recommended to follow-up with [facility]
pulmonology group for further evaluation of this.
Patient had an anion gap metabolic acidosis in ER which partially explained by ketoacidosis versus colonic loss as patient had few episodes of diarrhea a few days back. This rapidly normalized with bicarb therapy and did not require any further
intervention.
Patient was also positive for marijuana although patient strongly denies ever using it.
Post medical stabilization patient was discharged to home with plan for follow-up in outpatient pulmonology office.
Important imaging findings :
None
Procedure findings :
None
Discharge Plan
-
Patient Disposition: Home (Routine Discharge)
Discharge Diagnosis/Procedures: Pneumo-mediastinum, Chest discomfort, cardiac catheterization
Condition: Fair
Diet: Regular
Activity: As tolerated
Driving Restrictions: As prior to admission
Bathing Restrictions: OK to Shower
Activity Restrictions/Additional Instructions:
Call for an appointment with [facility] Pulmonology group. Contact Number : [phone].
Stand Alone Forms: DC Instructions- Cath/EP Lab
Referrals:
Joe Arndt DO [Active] - 10/10/23 11:40 am (Cardiology followup appointment)
NONE,* [Family Provider] -
Rafal Chau MD [Active] - in two to four weeks
Prescriptions:
New
metoprolol tartrate 25 mg tablet
12.5 mg PO BID Qty: 60 0RF
oxycodone 5 mg tablet
5 mg PO Q8H PRN (Reason: Mod sev pain) Qty: 14 0RF
Continued
acetaminophen [Tylenol] 325 mg Tablet
650 mg PO Q4HPRN PRN (Reason: mild pain)
Discharge Orders:
Discharge Patient (As Directed); Ordered 09/23/23
Ordered By: Jose Jorge
Discharge Date and Time
Discharge Date/Time: 09/23/23 18:41
Print Language: LITHUANIAN
== END 2023-09-23 18:41 | disposition home or self-care (01) | DRG 200 ==
LOC: 4 EAST ACU 15:26
PROVIDERS: Internal Medicine Cardiovascular Disease; Registered Nurse; ADMITTING PHYSICIAN Hospitalist; CONSULT PHYSICIAN Internal Medicine Cardiovascular Disease; CONSULT PHYSICIAN Internal Medicine Critical Care Medicine; EMERGENCY PHYSICIAN Emergency Medicine
PROC: B2111ZZ Fluoroscopy of Multiple Coronary Arteries using Low Osmolar Contrast (ICD-10-PCS; 2023-09-22)
PROC: B2151ZZ Fluoroscopy of Left Heart using Low Osmolar Contrast (ICD-10-PCS; 2023-09-22)
PROC: 4A023N8 Measurement of Cardiac Sampling and Pressure, Bilateral, Percutaneous Approach (ICD-10-PCS; 2023-09-22)
DX: J98.2 Interstitial emphysema (principal); E87.1 Hypo-osmolality and hyponatremia; E87.20 Acidosis, unspecified; Q21.12 Patent foramen ovale; Z98.84 Bariatric surgery status; F41.9 Anxiety disorder, unspecified; F32.A Depression, unspecified; R09.02 Hypoxemia
CPT/HCPCS: 94727; 94729; 36600; 71046; 71260; 71275; 74221; 78582; 80048; 80053; 80306; 81003; 82077; 82248; 82728; 82784; 82805; 82962; 83516; 83605; 83880; 83930; 84133; 84300; 84443; 84484; 84703; 85025; 85027; 86231; 93005; 93306; 93307; 93460; 94010; 99285; A9540; A9567; C1760; C1894; J2916; Q9967

== ENCOUNTER → 2023-11-06 06:03 | Outpatient (REF) | payer BC, SELFPAY | LOC: HWRAD 06:03 | PROVIDERS: ATTENDING PHYSICIAN Nurse Practitioner Family | DX: J98.2 Interstitial emphysema (principal) | CPT/HCPCS: 71046 ==

== ENCOUNTER → 2023-11-09 13:05 | Outpatient (REF) | payer BC, SELFPAY | LOC: HWRAD 13:05 | PROVIDERS: ATTENDING PHYSICIAN Nurse Practitioner Family | DX: R10.33 Periumbilical pain (principal) | CPT/HCPCS: 74177; Q9967 ==

== ENCOUNTER 2024-05-08 18:43 | Emergency (ER) | payer BC, SELFPAY ==
[2024-05-08 18:53] VITALS: BP 141/93
[2024-05-08 19:22] LABS: % Basophils 0.7 % (0-2); % Immature Granulocytes 0.2 % (0-0.5); % Lymphocytes 31.9 % (20.5-51.1); % Monocytes 6.7 % (1.7-9.3); % Neutrophils 59.5 % (42.2-75.2); Absolute Eosinophils 0.1 10^3/uL (0-0.7); Absolute Lymphocytes 1.9 10^3/uL (1.2-3.4); Absolute Monocytes 0.4 10^3/uL (0.1-0.6); Absolute Neutrophils 3.6 10^3/uL (1.4-6.5); Hematocrit 41.2 % (37.0-47.0); Hemoglobin 13.4 g/dL (12.0-16.0); Mean Corp Hgb Conc. 32.5 g/dL (33.0-37.0); Mean Corpuscular Hgb 26.6 pg (27.0-31.0); Mean Corpuscular Volume 81.7 fL (81.0-99.0); Mean Platelet Volume 10.7 fL (7.4-10.4); Nucleated Red Blood Cells % 0 %; Platelet Count 325 10^3/uL (130-400); Red Blood Cell Count 5.04 10^6/uL (4.20-5.40); Red Cell Dist. Width 14.3 % (11.5-14.5)
[2024-05-08 19:36] LABS: ALT (SGPT) 14 U/L (0-35); AST (SGOT) 24 U/L (14-36); Albumin 5.2 g/dl (3.5-5.0); Alkaline Phosphatase 62 U/L (38-126); Blood Urea Nitrogen 18 mg/dl (7-17); Calcium 9.4 mg/dl (8.4-10.2); Carbon Dioxide 27 mmol/L (22-30); Chloride 100 mmol/L (98-107); Glucose 76 mg/dl (70-99); Potassium 3.4 mmol/L (3.5-5.1); Sodium 141 mmol/L (135-145); Total Bilirubin 0.6 mg/dl (0.2-1.3); Total Protein 8.8 g/dl (6.3-8.2); eGFR > 60.00
[2024-05-08 19:48] LABS: NT-proBNP < 20.0 pg/ml; Troponin I < 0.012 ng/ml
[2024-05-08 23:49] VITALS: BMI 23.6
[2024-05-09 00:07] VITALS: BP 137/87
--- NOTE | 2024-05-09 00:11 | ED.GENMED ---
History of Present Illness
<ENDY Grier - Last Filed: 05/09/24 00:27>
General
Chief Complaint: Chest Pain
Source: patient
Exam Limitations: none
Time Seen by Provider: 05/08/24 23:57
History of Present Illness
History of Present Illness:
This is a 43 year old female that comes in with c/o chest pain and SOB. States that this started about 1.5 weeks ago and this has been constant. States that this has happened before and she was admitted here and then after she was discharged few
days later she was admitted to [facility] and they did not find anything. States that her chest pain is a constant pressure that is pushing down on her chest. States that she has a headache on and off for about 1.5 weeks and she gets lightheaded when she
gets up. States that she is also SOB. Denies any fever, chills, abd pain, nausea, vomiting, diarrhea, urinary burning.
Past History
<ENDY Grier - Last Filed: 05/09/24 00:27>
Past History
ED Past Medical History: Psychiatric (Depression) and Other ( polycystic ovaries, Anemia, Trigeminal autonomic cephalgias)
ED Past Surgical History: Appendectomy, Bowel resection, Cholecystectomy, (X 1), Gynecological (D&C), Orthopedic (Left ankle plate) and Other (Yousif-en-Y, Polyps removed)
Social History
Tobacco: Non-smoker
Alcohol: Occasional
Personal:
Living: with family
Employment: Other
Family History
Family History: Other
Review of Systems
<EDNY Grier - Last Filed: 05/09/24 00:27>
Review of Systems
All Other Systems: ROS reviewed and negative except as documented in HPI and ROS
Constitutional: Reports no symptoms; Denies fever or chills
EENT: Reports no symptoms
Respiratory: Reports trouble breathing; Denies cough
Cardiac: Reports chest pain
ABD/GI: Denies abdominal pain, nausea, vomiting or diarrhea
: Reports no symptoms; Denies dysuria, frequency or urgency
Musculoskeletal: Reports no symptoms
Skin: Reports no symptoms
Neurological: Reports dizzy (when getting up fast) and headache (on and off for 1.5 weeks)
Psychiatric: Reports no symptoms
Phy Exam
<ENDY Grier - Last Filed: 05/09/24 00:27>
General Physical Exam
General Presentation: well appearing and no apparent distress
General age: appears stated age
General Skin: warm and dry
General Habitus: normal
General Mental: alert
General Hydration: appears well hydrated
ENT Exam
ENT Exam: TM's normal, pharynx normal and neck supple
Eye Exam
Eye Exam: EOMI
Cardiovascular Exam
Cardiovascular Exam: regular rate/rhythm, no edema, no murmur and normal peripheral pulses
Pulmonary Exam
Pulmonary Exam: lungs clear, no respiratory distress, no rales, chest non tender, no crackles, no rhonchi, no wheezing and no cough
Gastrointestinal Exam
Gastrointestinal Exam: normal bowel sounds, non tender, soft, no organomegaly, no pulsatile mass and non distended
Musculoskeletal Exam
Musculoskeletal Exam: full ROM and no edema
Skin Exam
Skin Exam: normal color, warm/dry, no rash and no petechia
Psychiatric Exam
Psychiatric Exam: normal mood/affect
Scores
<ENDY Grier - Last Filed: 05/09/24 00:27>
Heart Score for Chest Pain Patients
STEMI patient?: No
History: Slightly or Non-Suspicious
ECG: Normal
Age: </= 45 years
Risk Factors: No Risk Factors
Troponin: </= Normal Limit
Heart Score for Chest Pain Patients: 0
Heart Score Risk: 2.5% MACE over next 6 weeks
Course
<ENDY Grier - Last Filed: 05/09/24 00:27>
Orders/Labs/Results
Orders:
Orders
05/08/24 18:44
ECG [Electrocardiogram (*1)] Urgent
Reason for Study: Chest Pain
EKG- Treatment ONCE
05/08/24 19:00
CR Chest - 2 Views Urgent
Comment:
Reason For Exam: shortness of breath
05/08/24 19:10
Complete Blood Count/With Diff Urgent
Comprehensive Metabolic Panel Urgent
NT-proBNP Urgent
Troponin I Urgent
Abnormal Lab Results
05/08/24
19:10
MCH 26.6 L pg
(27.0-31.0)
MCHC 32.5 L g/dL
(33.0-37.0)
MPV 10.7 H fL
(7.4-10.4)
Potassium 3.4 L mmol/L
(3.5-5.1)
BUN 18 H mg/dl
(7-17)
Total Protein 8.8 H g/dl
(6.3-8.2)
Albumin 5.2 H g/dl
(3.5-5.0)
05/08/24 19:10
05/08/24 19:10
Potassium slightly low. Slight Dehydration. Total protein slightly elevated. Albumin slightly elevated. Troponin <0.012, Pro-BNP <20.0
Vital Signs
Initial and Last Documented VS:
Initial Vital Signs
Temp Pulse Resp BP Pulse Ox
98.1 F 81 18 141/93 97
05/08/24 18:53 05/08/24 18:53 05/08/24 18:53 05/08/24 18:53 05/08/24 18:53
Last Documented Vital Signs
Temp Pulse Resp BP Pulse Ox
98.1 F 67 18 137/87 96
05/08/24 18:53 05/09/24 00:07 05/09/24 00:07 05/09/24 00:07 05/09/24 00:07
<Juvenal Alvarenga, DO - Last Filed: 05/09/24 00:21>
Orders/Labs/Results
Orders:
Orders
05/08/24 18:44
ECG [Electrocardiogram (*1)] Urgent
Reason for Study: Chest Pain
EKG- Treatment ONCE
05/08/24 19:00
CR Chest - 2 Views Urgent
Comment:
Reason For Exam: shortness of breath
05/08/24 19:10
Complete Blood Count/With Diff Urgent
Comprehensive Metabolic Panel Urgent
NT-proBNP Urgent
Troponin I Urgent
Abnormal Lab Results
05/08/24
19:10
MCH 26.6 L pg
(27.0-31.0)
MCHC 32.5 L g/dL
(33.0-37.0)
MPV 10.7 H fL
(7.4-10.4)
Potassium 3.4 L mmol/L
(3.5-5.1)
BUN 18 H mg/dl
(7-17)
Total Protein 8.8 H g/dl
(6.3-8.2)
Albumin 5.2 H g/dl
(3.5-5.0)
05/08/24 19:10
05/08/24 19:10
Vital Signs
Initial and Last Documented VS:
Initial Vital Signs
Temp Pulse Resp BP Pulse Ox
98.1 F 81 18 141/93 97
05/08/24 18:53 05/08/24 18:53 05/08/24 18:53 05/08/24 18:53 05/08/24 18:53
Last Documented Vital Signs
Temp Pulse Resp BP Pulse Ox
98.1 F 67 18 137/87 96
05/08/24 18:53 05/09/24 00:07 05/09/24 00:07 05/09/24 00:07 05/09/24 00:07
<ENDY Grier - Last Filed: 05/09/24 00:27>
MDM/Problems Addressed
Differential Diagnosis Includes:
Coronary syndrome. Pneumomediastinum.
MDM/Problems Addressed:
This is a 43 year old female that comes in with c/o chest pain and SOB. States that this has been going on for the past 1.5 weeks.
Will check labs. Chest x-ray and ECG.
Patient seen by Dr. Alvarenga and will have patient follow up with her Hydrometeorological Technician. Return with any concerns
Chronic conditions affecting care:
NA
Acute Exacerbation and/or Progression of Chronic Illness:
NA
<ENDY Grier - Last Filed: 05/09/24 00:27>
*Radiology
Radiology exam reviewed: preliminary read by ED provider (Chest- negative for active disease. )
*Pulse Oximetry
Patient hypoxic: no
*EKG
Interpreted by ED Provider?: Yes
Heart Rate: 68
Rate: normal
Rhythm: sinus
[place]: normal axis
Interval: normal interval
Ischemia: no ischemia
*Dedicated Intermodal Truck Driver Interpretation
Rate: [employer]icated [employer] Truck Driver- N/A
*Critical Care Note
Total Time (30-74mins, 75-104mins- exclusive of procedures): Not Applicable
ED Attending Note
<ENDY Grier - Last Filed: 05/09/24 00:27>
-
Portions of this chart may have been created with voice recognition software.� Occasional wrong word or��sound alike� substitutions may have occurred due to the inherent limitations of voice recognition software.
<Juvenal Alvarenga, DO - Last Filed: 05/09/24 00:21>
ED Attending Note
Patient seen and examined by attending physician: Yes
ED Attending Note:
I have reviewed and agree with history plan by Lucita Bee. My exam revealed
Physical Exam
General: no apparent distress, not acutely ill
Neck: supple. no meningeal signs. normal posterior pharynx
Heart: s1/s2 regular rate and rhythm, no murmur. equal radial
pulses.
HEENT: Pupils equal round reactive to light, EOMI
Lungs: no acute respiratory distress. clear bilaterally
Abdomen: normal bowel sounds. not tender. no CVAT
Neuro: alert and oriented. no focal neurological deficits cranial nerves II through XII intact
Skin: no rash
Psychiatric: well kept. interactive and cooperative
Extremities: no edema. no calf tenderness. negative homans. good distal pulses
43-year-old female with chest heaviness and shortness of breath for a week and a half. Do not suspect PE or ACS. Possible inflammation from prior pneumomediastinum. Stable for discharge.
Discharge Plan
Departure
Patient Disposition: Home (Routine Discharge)
Date of Disposition: 05/09/24
Time of Disposition: 00:24
Patient with high blood pressure during this ER visit?: Yes
Condition: Good
Covid-19: Not Applicable
Discharge Problem:
Chest pain, SOB (shortness of breath)
Instructions: Shortness of breath in adults - ED discharge instructions, Chest Pain NON-[facility]P Hydrometeorological Technician Follow Up, BLOOD PRESSURE
Prescriptions:
No Action
acetaminophen [Tylenol] 325 mg Tablet
650 mg PO Q4HPRN PRN (Reason: mild pain)
metoprolol tartrate 25 mg tablet
12.5 mg PO BID Qty: 60 0RF
oxycodone 5 mg tablet
5 mg PO Q8H PRN (Reason: Mod sev pain) Qty: 14 0RF
Referrals:
UNKNOWN - PT DOES,NOT KNOW [Family Provider] -
Activity Restrictions/Additional Instructions:
As discussed, your blood work shows that you are very slightly Dehydrated. Your Troponin and chest x-ray are normal. Your oxygen saturation is 99-100%. Please follow up with your Hydrometeorological Technician for further evaluation. IF YOU HAVE INCREASED OR
CHANGING PAIN, OR YOU HAVE ANY OTHER CONCERNS PLEASE RETURN TO THE EMERGENCY ROOM
Interventions
Interventions:
*Risk Screen - Suicide Last Done: 05/08/24 18:53
*General Assessment Last Done: 05/08/24 18:53
*Neglect/Abuse Screening Last Done: 05/08/24 18:53
ED- Fall Risk Assessment Last Done: 05/08/24 23:44
*ED COVID-19 Vaccine History Last Done: 05/08/24 18:53
ED- Cardiac Assessment Last Done: 05/08/24 23:44
Discharge Date and Time
Print Language: PASHTO
== END 2024-05-09 00:30 | disposition home or self-care (01) ==
LOC: EMR 18:43
PROVIDERS: Physician Assistant Medical; EMERGENCY PHYSICIAN Emergency Medicine
DX: R07.89 Other chest pain (principal); R06.02 Shortness of breath
CPT/HCPCS: 99285; 71046; 80053; 83880; 84484; 85025; 93005